=== PATIENT | female | born 1965 | race Caucasian/White ===

== ENCOUNTER 2017-01-19 20:02 | Emergency (ER) | payer BC ==
[2017-01-19] MEDS ORDERED: cefTRIAXone 1 GM Vial IM ONE (20:14)
[2017-01-19] MEDS ORDERED: HYDROmorphone 2 MG/ML SDV IM STA (20:23)
--- NOTE | 2017-01-19 21:05 | EDM.PDOC ---
ED HPI Trauma - General Stated Complaint: Toe injury Time Seen by Provider: 01/19/17 20:29 Source: Reports: Patient, Family History Limitations: Reports: No limitations - History of Present Illness INITIAL COMMENTS - FREE TEXT/NARRATIVE: 51 years old w f came to the ed due to pain and deformity of her right 5th toe after a dog leash got in between the toe 4/5 and the dog took off. Pt was able to walk on here right heal. No N/V/D or other acute medical issues at this time. Symptom Onset Date: 01/19/17 Symptom Onset Time: 19:00 Occurred When: just prior to arrival Occurred Where: home Method of Injury: other ( dog leash was stuck inbetween toes 4/5 r side) Severity: moderate Pain/Injury Location: Reports: lower extremity, right Consciousness: Reports: no loss of consciousness Associated Symptoms: Reports: denies other symptoms Allergies/ADRs: Allergies venom-honey bee [bee venom (honey bee)] Allergy (Mild, Verified 01/19/17 20:36) Swelling cajun spice Allergy (Mild, Uncoded 01/19/17 20:36) Swelling Home Medications: Ambulatory Orders Levothyroxine Sodium [Synthroid] 75 mcg PO ACBRK 08/18/13 [Confirmed 01/19/17] Losartan/Hydrochlorothiazide [Losartan-HCTZ 100-12.5 MG] 1 each PO DAILY [Confirmed 01/19/17] Pantoprazole Sodium 40 mg PO DAILY 06/01/14 [Confirmed 01/19/17] Acetaminophen/HYDROcodone [Muse 325-5 MG] 1 - 2 tab PO Q4H PRN #20 tab [Confirmed 01/19/17] Clindamycin HCl [Cleocin] 300 mg PO Q8H #30 cap 05/27/16 [Confirmed 01/19/17] Cephalexin [Keflex] 500 mg PO Q6HR #40 cap 01/19/17 Past Medical History - Past Health History Medical/Surgical History: Denies Medical/Surgical History Cardiovascular History: Reports: High cholesterol, Hypertension Gastrointestinal History: Reports: GERD Endocrine/Metabolic History: Reports: Hypothyroidism - Infectious Disease History Infectious Disease History: Reports: Chicken pox, Mumps, Shingles Social & Family History - Tobacco Use Smoking Status *Q: Former Smoker Years of Tobacco use: 34 Packs/Tins Daily: 1 Used Tobacco, but Quit: Yes Month Tobacco Last Used: 12/2013 Second Hand Smoke Exposure: No - Caffeine Use Caffeine Use: Reports: None - Alcohol Use Days Per Week of Alcohol Use: 7 Number of Drinks Per Day: 1 Total Drinks Per Week: 7 - Recreational Drug Use Recreational Drug Use: No Review of Systems - Review of Systems Review Of Systems: See Below Constitutional: Reports: no symptoms Eyes: Reports: no symptoms Ears: Reports: no symptoms Nose: Reports: no symptoms Mouth/Throat: Reports: no symptoms Respiratory: Reports: No Symptoms Cardiovascular: Reports: no symptoms GI/Abdominal: Reports: No symptoms Genitourinary: Reports: no symptoms Musculoskeletal: Reports: no symptoms Skin: Reports: wound (between left 4/5 right toe.) Neurological: Reports: No Symptoms Psychiatric: Reports: no symptoms Trauma Exam - Physical Exam Exam: See Below Exam Limited By: No limitations General Appearance: Reports: alert, WD/WN, mild distress Head: Reports: atraumatic, normocephalic Eyes: bilateral eye: normal inspection Ears: Reports: normal external exam, normal canal, hearing grossly normal, normal TMs Nose: Reports: normal inspection, normal mucousa, no blood Throat/Mouth: Reports: Normal inspection, Normal lips, Normal teeth, Normal gums , Normal oropharynx, Normal voice Neck: Reports: non-tender, full range of motion, normal alignment, normal inspection Respiratory Exam: Reports: no respiratory distress, lungs clear, normal breath sounds, no accessory muscle use, chest non-tender Cardiovascular: Reports: normal peripheral pulses, regular rate, rhythm, no edema, no gallop, no JVD, no murmur GI/Abdominal: Reports: normal bowel sounds, soft, non tender, no organomegaly (Female) Exam: Deferred Rectal (Female) Exam: Deferred Back: Reports: full range of motion, normal inspection, non-tender Extremities: Reports: pelvis stable, pain with movement (right 5th toe) Neurologic: Reports: business and financial counsel II-XII nml as tested, no motor/sensory deficits, alert , normal mood/affect, oriented x 3 Skin: Reports: Normal color, Other (minor LAC between 4th and 5th toe r foot) - Bob Coma Score Best Eye Response (Mammoth): (4) open spontaneously Best Verbal Response (Bob): (5) oriented Best Motor Response (Bob): (6) obeys commands [place]ammoth Total: 15 Course - Vital Signs Text/Narrative:: 51 years old w f came to the ed due to pain and deformity of her right 5th toe after a dog leash got in between the toe 4/5 and the dog took off. Pt was able to walk on here right heal. No N/V/D or other acute medical issues at this time. TD UTD PE: Deformity r 5th toe. minor LAC interdigital 4/5 toe, no active bleed Imaging: R toes: angulated fracture 5th prox Phalanx r 5th toe. Impression: open Fx 5th prox phalanx of right foot Tx: Rocephin, Dilaudid, wound care, beena tape applied, Unaboot r foot reexam: Improved, pt has boot at her home from a prev foot injury Plan: D/C home with instructions. addendum: consultation: Dr. Pike. J Ortho: I splanning to apply pins in her r 5th phalanx on Monday. Pt was given the phone number of Dr. Pike to call him: , Pt was called on 01/20/2017 10.01 am Last Recorded V/S: Last Vital Signs Temp 36.5 C 01/19/17 20:29 Pulse 71 01/19/17 21:27 Resp 14 01/19/17 20:29 BP 112/72 01/19/17 21:27 Pulse Ox 99 01/19/17 20:29 - Orders/Labs/Meds Orders: Active Orders 24 hr Category Date Time Status Toes Fifth Digit Rt T9 [CR] Stat Exams 01/19/17 20:11 Taken Meds: Medications Discontinued Medications Generic Name Dose Route Start Last Admin Trade Name Freq PRN Reason Stop Dose Admin Ceftriaxone Sodium 1 gm 01/19/17 20:14 01/19/17 20:24 Rocephin IM 01/19/17 20:15 1 gm ONETIME ONE Administration Hydromorphone HCl 1 mg 01/19/17 20:23 01/19/17 20:26 Dilaudid IM 01/19/17 20:24 1 mg ONETIME STA Administration Ondansetron HCl 8 mg 01/19/17 21:21 01/19/17 21:24 Zofran Odt PO 01/19/17 21:22 8 mg ONETIME ONE Administration Departure - Departure Time of Disposition: 21:19 Disposition: Home, Self-Care 01 Condition: good Clinical Impression: Laceration Toe fracture, right Qualifiers: Encounter type: initial encounter Toe: lesser toe Fracture type: open Phalanx: distal Fracture alignment: displaced Qualified Code(s): S92.531B - Displaced fracture of distal phalanx of right lesser toe(s), initial encounter for open fracture Prescriptions: Cephalexin [Keflex] 500 mg PO Q6HR #40 cap Referrals: Anna Mack NP [Primary Care Provider] - Patrick Pike MD [Physician] - Forms: ED Department Discharge Additional Instructions: Please elevate r foot, please take motrin for pain, please f/u with ortho as soon as possible, please take the Abx as recommended, please come back to the ed if symptoms get worse acutely. - My Orders Last 24 Hours: My Active Orders 01/19/17 20:11 Toes Fifth Digit Rt T9 [CR] Stat - Assessment/Plan Last 24 Hours: My Active Orders 01/19/17 20:11 Toes Fifth Digit Rt T9 [CR] Stat
[2017-01-19] MEDS ORDERED: Ondansetron 8 MG Tab.DIS PO ONE (21:21)
[2017-01-19 21:30] VITALS: BP 112/72
--- NOTE | 2017-01-20 13:53 | CR ---
INDICATION: Trauma to 5th toe. RIGHT TOES: Three views of the right toes revealed a comminuted fracture obliquely through the distal shaft and metaphysis of the proximal phalanx of the 5th toe with fairly marked medial plantar angulation at the fracture site with dorsal offset of the distal fracture fragment and lateral offset of the distal fracture fragment. No other bone or joint abnormality was identified. IMPRESSION: Fracture of the 5th toe with significant deformity. DOMINICK
== END 2017-01-19 21:27 | disposition home or self-care (01) ==
LOC: FB.ED 20:02
DX: S92.531B Displaced fracture of distal phalanx of right lesser toe(s), initial encounter for open fracture (principal); S91.114A Laceration without foreign body of right lesser toe(s) without damage to nail, initial encounter; I10 Essential (primary) hypertension; K21.9 Gastro-esophageal reflux disease without esophagitis; E03.9 Hypothyroidism, unspecified; Z79.899 Other long term (current) drug therapy; Z87.891 Personal history of nicotine dependence; Z91.030 Bee allergy status; Z91.018 Allergy to other foods; E78.00 Pure hypercholesterolemia, unspecified; W22.8XXA Striking against or struck by other objects, initial encounter; Y92.009 Unspecified place in unspecified non-institutional (private) residence as the place of occurrence of the external cause
CPT/HCPCS: 73660; 96372; 99283; A9270; J0696; J1170

== ENCOUNTER 2017-01-23 13:00 | Day surgery (SDC) | payer BC ==
[~2017-01-23 13:00] MED LIST: Lactated Ringers 1,000 ML IV SCH; Sodium Chloride 0.9% 10 ML Syringe FLUSH PRN; ceFAZolin 2 GM in Premix Bag 1 BAG IV ONE
[2017-01-23] MEDS ORDERED: Lidocaine 2% 100 MG/5 ML Syringe IVPUSH ONE (13:30)
[2017-01-23] MEDS ORDERED: Midazolam 1 MG/ML 2 ML SDV IV ONE (13:30)
[2017-01-23] MEDS ORDERED: Ketorolac 30 MG/ML SDV IVPUSH ONE (13:30)
[2017-01-23] MEDS ORDERED: Propofol 200 MG/20 ML SDV IV ONE (13:30)
[2017-01-23] MEDS ORDERED: fentaNYL 100 MCG/2 ML SDV IV ONE (13:30)
[2017-01-23] MEDS ORDERED: Ondansetron 4 MG/2 ML SDV IVPUSH ONE (13:30)
[2017-01-23] MEDS ORDERED: Ketamine 500 mg/10 ML MDV IV ONE (13:30)
[2017-01-23] MEDS ORDERED: Bupivacaine 0.5% 30 ML SDV ONE (13:56)
[2017-01-23] MEDS ORDERED: Acetaminophen/HYDROcodone 325-5 MG Tab PO PRN (14:42)
[2017-01-23] MEDS ORDERED: Lactated Ringers 1,000 ML IV SCH (14:45)
[2017-01-23] MEDS ORDERED: Vancomycin 1 GM SDV IV SCH (15:00)
[2017-01-23] MEDS ORDERED: Vancomycin 750 MG, Vancomycin 500 MG in Sodium Chloride 0.9% 250 ML IV ONE (16:00)
[2017-01-23] MEDS ORDERED: diphenhydrAMINE 50 MG Cap PO ONE (17:15)
[2017-01-23 18:19] VITALS: BP 124/45
--- NOTE | 2017-01-23 21:06 | OR ---
DATE OF OPERATION: 01/23/2017 SURGEON: Patrick Pike MD PREOPERATIVE DIAGNOSIS: Compound fracture, right 5th toe. OPERATIVE NOTE: The patient was taken to the operative suite and given a light MAC anesthesia with a 5th metatarsal phalangeal block. The block was performed after sterile ChloraPrep had been performed. 0.5% plain Marcaine was utilized without epi. This was done because the patient had significant pain with any movement of the toe. Once the sterile prep had been performed with ChloraPrep which was use from mid tibia down to the tip of the toes, sterile draping procedure was carried out. The patient then had the area examined. We found a curvilinear incision volarly that started in the top of the web space and then curved around on between the toes and then slightly proximal. It was a little over an inch. There was no active bleeding. I irrigated this with Betadine several times. I tried to close reduction with a 0.062 K-wire but visualization was not good and on the one AP, since the fracture site was very small, the bone alignment was not acceptable. Therefore, we opened the fracture dorsally. I made a small skin incision about an inch in length and dissected very carefully. The fracture site was brought into view and then with using a 0.062 K-wire, we then placed this across the fracture site and stabilized it. The pin was cut and then a small Jurgans ball was applied. The incision was then closed with 3-0 interrupted nylon. I closed the web space incision as well, although I did leave an area about a quarter of an inch open dorsally, so if there is any fluid or purulent material that would come out of the area and not be confined. She did receive 2 g of Ancef preoperatively but this incision that was felt to be small by the ER physician was actually a little bit larger than what I was comfortable with so with the current treatment; therefore, she will receive a gram of vancomycin postop and then come in every 12 hours for repeat vancomycin peak and trough and appropriate dosing of vancomycin will be followed by the pharmacy department. Postoperatively, also discussed with the patient the importance of watching for any increasing pain, redness, temperature, or any other concerns that she may have. Dressings will also be changed daily by the ER physician. /[id number] JJ/MODL
--- NOTE | 2017-01-24 14:48 | CR ---
INDICATION: Right 5th toe fracture. C-ARM FOR REDUCTION OF DISPLACED RIGHT 5TH TOE FRACTURE: Approximately 1 minute of radiation was utilized. Closed pinning reviewed and alignment has not been restored. [facility]
--- NOTE | 2017-01-24 14:49 | CR ---
INDICATION: Right 5th toe fracture. RIGHT 5TH TOE: AP and lateral of the right 5th toe, status post open reduction and internal fixation reveals that the patient has no evidence of significant malalignment. Significant improvement in alignment has been noted. Stabilization from a 0.62 K-wire noted. MTDD
== END 2017-01-23 17:35 | disposition home or self-care (01) ==
LOC: FB.SDS 13:00
PROVIDERS: ATTEND Orthopaedic Surgery
DX: S92.531B Displaced fracture of distal phalanx of right lesser toe(s), initial encounter for open fracture (principal); I10 Essential (primary) hypertension; E78.00 Pure hypercholesterolemia, unspecified; K21.9 Gastro-esophageal reflux disease without esophagitis; E03.9 Hypothyroidism, unspecified; Z79.899 Other long term (current) drug therapy; Z87.891 Personal history of nicotine dependence; Z91.030 Bee allergy status; Z91.018 Allergy to other foods
CPT/HCPCS: 28525; 36415; 73660; 76000; 82565; 82962; 84520; A4217; A9270; J0690; J1885; J2250; J2405; J2704; J3010; J3370; J7050; J7120

== ENCOUNTER 2017-09-08 07:57 | Day surgery (SDC) | payer BC ==
[2017-09-08] MEDS ORDERED: Lactated Ringers 1,000 ML IV SCH (08:00)
[2017-09-08] MEDS ORDERED: Sodium Chloride 0.9% 10 ML Syringe FLUSH PRN (08:00)
[2017-09-08] MEDS ORDERED: Propofol 200 MG/20 ML SDV IV ONE (09:30)
[2017-09-08] MEDS ORDERED: Midazolam 1 MG/ML 2 ML SDV IV ONE (09:30)
--- NOTE | 2017-09-08 09:57 | PCM.OPNOTE ---
- General Post-Op/Procedure Note Date of Surgery/Procedure: 09/08/17 Operative Procedure(s): c scope with bx hot loop and cold forcep Findings: cecal polyp descending colon polyp diverticulosis Pre Op Diagnosis: screening Post-Op Diagnosis: cecal polyp. descending colon polyp. diverticulosis Anesthesia Technique: MAC Primary Surgeon: Sammy Lamas Anesthesia Provider: Kaila Cruz Pathology: cecal polyp descending colon polyp Complications: None Condition: Good Free Text/Narrative:: see dictation
[2017-09-08 11:03] VITALS: BP 148/87
--- NOTE | 2017-09-08 15:47 | OR ---
DATE OF OPERATION: 09/08/2017 SURGEON: Sammy Lamas MD PROCEDURE PERFORMED: Colonoscopy with cold forceps and hot loop snare biopsy. PREOPERATIVE DIAGNOSIS: Need for screening C scope. POSTOPERATIVE DIAGNOSES: Polyp of the cecum and descending colon. INDICATIONS FOR PROCEDURE: This is a 52-year-old white female who is referred for screening colonoscopy. She was offered and accepted the same. DESCRIPTION OF OPERATION: After an excellent IV sedation was administered, digital rectal exam was performed. No marked abnormality was noted. The flexible colonoscope was inserted and advanced to the cecum without difficulty. The following findings were noted: Ascending colon in the area of the cecum near the appendiceal orifice, there was a small, plaque-like looking lesion. It appeared to be consistent with a possible polyp. This was biopsied with cold biopsy forceps and sent for permanent. The remainder of the ascending colon was unremarkable. Transverse colon was unremarkable. Descending colon near the splenic flexure, a pedunculated polyp, biopsied with the hot loop snare and retrieved. Scattered diverticula noted in the cecum and in the sigmoid as well. The rectum and anus were unremarkable. Colon was deflated. Scope was removed. The patient was taken to recovery in good condition. /[id number] /MODL
== END 2017-09-08 11:20 | disposition home or self-care (01) ==
LOC: FB.SDS 07:57
PROVIDERS: ATTEND Surgery
DX: Z12.11 Encounter for screening for malignant neoplasm of colon (principal); D12.4 Benign neoplasm of descending colon; K63.5 Polyp of colon; K57.30 Diverticulosis of large intestine without perforation or abscess without bleeding; I10 Essential (primary) hypertension; K21.9 Gastro-esophageal reflux disease without esophagitis; E03.9 Hypothyroidism, unspecified; E78.2 Mixed hyperlipidemia; E87.6 Hypokalemia; E11.9 Type 2 diabetes mellitus without complications; J45.909 Unspecified asthma, uncomplicated; F32.9 Major depressive disorder, single episode, unspecified; Z91.030 Bee allergy status; Z91.018 Allergy to other foods; Z79.84 Long term (current) use of oral hypoglycemic drugs; Z79.899 Other long term (current) drug therapy; Z98.51 Tubal ligation status; Z98.890 Other specified postprocedural states; Z87.891 Personal history of nicotine dependence
CPT/HCPCS: 45380; 45385; 82962; J2250; J2704; J7120; 88305

== ENCOUNTER 2017-09-09 20:42 | Emergency (ER) | payer BC ==
[2017-09-09 22:05] VITALS: BP 114/79
--- NOTE | 2017-09-09 23:01 | ER ---
DATE SEEN: 09/09/2017 CHIEF COMPLAINT: Nosebleed. HISTORY OF PRESENT ILLNESS: This is a 52-year-old female who complains of nosebleed that started suddenly about 30 minutes ago and then she got really anxious. It was flowing from both nostrils and up to the throat and it started without trauma. She has had similar episode 6 months ago that stopped spontaneously. REVIEW OF SYSTEMS: No chest pain, nausea, or vomiting. PAST MEDICAL HISTORY: Diverticulosis of the colon, type 2 diabetes, hyperlipidemia, hypothyroidism. ALLERGIES: Venom. PHYSICAL EXAMINATION: GENERAL: Anxious female who is not in any cardiopulmonary distress. VITAL SIGNS: Her blood pressure is 140 systolic. She is afebrile. HEAD: Normal size. NOSE: Examined after the nurse had done pressure that stopped the bleeding. There was no active bleeding noted in the nostrils. There was some blood debris in the oropharynx. MENTAL STATUS: Alert, answers questions well. SKIN: No pallor or jaundice. FINAL IMPRESSION: Nosebleed. PLAN: Supportive therapy, reassurance. The patient advised to pinch the bridge of the nose at the onset if it begins again. Otherwise, follow up p.r.n. TIME SEEN: 2100 hours. /[id number] ASHLI/DULCE
== END 2017-09-09 22:03 | disposition home or self-care (01) ==
LOC: FB.ED 20:42
DX: R04.0 Epistaxis (principal); E11.9 Type 2 diabetes mellitus without complications; Z91.048 Other nonmedicinal substance allergy status
CPT/HCPCS: 99283

== ENCOUNTER 2017-10-06 14:00 | Emergency (ER) | payer OTHER, BC ==
[2017-10-06] MEDS ORDERED: Ketorolac 60 MG/2 ML SDV IM ONE (14:23)
--- NOTE | 2017-10-06 15:46 | EDM.PDOC ---
ED HPI GENERAL MEDICAL PROBLEM - General Chief Complaint: Upper Extremity Injury/Pain Stated Complaint: LEFT RIB AND HAND Time Seen by Provider: 10/06/17 14:30 Source of Information: Reports: Patient History Limitations: Reports: No Limitations - History of Present Illness INITIAL COMMENTS - FREE TEXT/NARRATIVE: Patient is a 52 year old woman who was using heated bricks to heat the food container and food cart in the [facility] yesterday on 10-05-17 at 18:30 pm. She had one fishman holding 8 bricks fall on her left chest wall and ribs and on her left hand. Both areas hurt when moved or touched. It also hurts to cough or take a deep breath or bend down. She came in for x-rays, pain relief and to be evaluated. No fever or chills or other complaints. Onset: Sudden Onset Date: 10/05/17 Onset Time: 18:30 Duration: Constant Location: Reports: Chest Quality: Reports: Sharp, Stabbing, Other (Left hand feels bruised.) Improves with: Reports: None Worsens with: Reports: Movement Context: Reports: Trauma (Eight bricks fell on hand.) Associated Symptoms: Reports: No Other Symptoms - Related Data Allergies Allergy/AdvReac Type Severity Reaction Status Date / Time venom-honey bee Allergy Mild Swelling Verified 09/09/17 21:36 [bee venom (honey bee)] cajun spice Allergy Mild Swelling Uncoded 09/09/17 21:36 Home Meds: Home Meds Levothyroxine Sodium [Synthroid] 88 mcg PO ACBRK 08/18/13 [History] Losartan/Hydrochlorothiazide [Losartan-HCTZ 100-12.5 MG] 1 each PO DAILY [History] Pantoprazole Sodium 40 mg PO DAILY 06/01/14 [History] Acetaminophen/HYDROcodone [Early 325-5 MG] 1 - 2 tab PO Q4H PRN #20 tab [Rx] Clindamycin HCl [Cleocin] 300 mg PO Q8H #30 cap 05/27/16 [Rx] Cephalexin [Keflex] 500 mg PO Q6HR #40 cap 01/19/17 [Rx] metFORMIN [Glucophage] 500 mg PO BIDMEALS 01/23/17 [History] atorvaSTATin [Lipitor] 10 mg PO BEDTIME 09/07/17 [History] Past Medical History - Past Health History Medical/Surgical History: Denies Medical/Surgical History Cardiovascular History: Reports: High Cholesterol, Hypertension Respiratory History: Reports: Other (See Below) Other Respiratory History: pneumonia Gastrointestinal History: Reports: Gastritis, GERD, Other (See Below) Other Gastrointestinal History: DIAPHRAGMATIC HERNIA Genitourinary History: Reports: Other (See Below) Other Genitourinary History: PROTEINURIA ARTIST WOODBLOCK History: Reports: Neurological History: Reports: None Psychiatric History: Reports: Anxiety, Depression Endocrine/Metabolic History: Reports: Diabetes, Type II, Hypothyroidism Hematologic History: Reports: Other (See Below) Other Hematologic History: HYPOPOTASSEMIA Immunologic History: Reports: None Oncologic (Cancer) History: Reports: None Dermatologic History: Reports: None - Infectious Disease History Infectious Disease History: Reports: Chicken Pox, Mumps, Shingles - Past Surgical History Head Surgeries/Procedures: Reports: None HEENT Surgical History: Reports: Oral Surgery, Other (See Below) Other HEENT Surgeries/Procedures: WEARS UPPER DENTURES GI Surgical History: Reports: Colonoscopy, EGD Female Surgical History: Reports: Tubal Ligation Musculoskeletal Surgical History: Reports: Carpal Tunnel, Ganglion Cyst, ORIF, Other (See Below) Other Musculoskeletal Surgeries/Procedures:: TRIGGER FINGER RELEASE Social & Family History - Family History Family Medical History: Noncontributory - Tobacco Use Smoking Status *Q: Never Smoker Years of Tobacco use: 34 Packs/Tins Daily: 1 Used Tobacco, but Quit: Yes Month Tobacco Last Used: 2012 Second Hand Smoke Exposure: No - Caffeine Use Caffeine Use: Reports: None - Alcohol Use Days Per Week of Alcohol Use: 4 Number of Drinks Per Day: 2 Total Drinks Per Week: 8 - Recreational Drug Use Recreational Drug Use: No Drug Use in Last 12 Months: No Review of Systems - Review of Systems Review Of Systems: ROS reveals no pertinent complaints other than HPI. ED EXAM, GENERAL - Physical Exam Exam: See Below Exam Limited By: No Limitations General Appearance: Alert, WD/WN, No Apparent Distress Eye Exam: Bilateral Eye: EOMI, Normal Fundi, Normal Inspection Ear Exam: Bilateral Ear: Auricle Normal, Canal Normal, TM normal Nose: Normal Inspection, Normal Mucosa, No Blood Throat/Mouth: Normal Inspection, Normal Lips, Normal Teeth, Normal Gums, Normal Oropharynx, Normal Voice, No Airway Compromise Head: Atraumatic, Normocephalic Neck: Normal Inspection, Supple, Non-Tender, Full Range of Motion Respiratory/Chest: No Respiratory Distress, Lungs Clear, Normal Breath Sounds, No Accessory Muscle Use, Chest Non-Tender Cardiovascular: Normal Peripheral Pulses, Regular Rate, Rhythm, No Edema, No Gallop, No JVD, No Murmur, No Rub Back Exam: Normal Inspection, Full Range of Motion, NT Extremities: Arm Pain (Left hand is sore and hurts when touchedd an moves. He feels good othe), Limited Range of Motion Neurological: Alert, Oriented, CN II-XII Intact, Normal Cognition, Normal Gait, Normal Reflexes, No Motor/Sensory Deficits Psychiatric: Normal Affect, Normal Mood Skin Exam: Warm Lymphatic: No Adenopathy Course - Vital Signs Text/Narrative:: Labs and x-rays were all normal and showed no fracture. She will not be able to use her left hand until reevaluated on 10-11-18 by her physician. Ibuprofen 800 mg and Ibuprofen 500 mg ever 6 hours. [facility] Last Recorded V/S: Last Vital Signs Temp 36.5 C 10/06/17 14:00 Pulse 76 10/06/17 14:00 Resp 18 10/06/17 14:00 BP 144/90 H 10/06/17 14:00 Pulse Ox 98 10/06/17 14:00 - Orders/Labs/Meds Orders: Active Orders 24 hr Category Date Time Status CXR [Chest 2V] [CR] Stat Exams 10/06/17 14:22 Taken Hand Comp Min 3V Lt [CR] Stat Exams 10/06/17 14:39 Taken Ribs 3V wo Chest Lt [CR] Stat Exams 10/06/17 14:22 Taken Labs: Laboratory Tests 10/06/17 10/06/17 Range/Units 14:50 14:50 WBC 7.9 (4.5-12.0) X10-3/uL RBC 4.48 (3.23-5.20) x10(6)uL Hgb 13.4 (11.5-15.5) g/dL Hct 40.0 (30.0-51.3) % MCV 89.3 (80-96) fL MCH 29.9 (27.7-33.6) pg MCHC 33.5 (32.2-35.4) g/dL RDW 17.4 H (11.5-15.5) % Plt Count 265 (125-369) X10(3)uL MPV 9.9 (7.4-10.4) fL Neut % (Auto) 62.8 (46-82) % Lymph % (Auto) 25.4 (13-37) % [place] % (Auto) 4.9 (4-12) % Eos % (Auto) 5 (1.0-5.0) % Baso % (Auto) 2 (0-2) % Neut # (Auto) 4.9 (1.6-8.3) # Lymph # (Auto) 2.0 (0.6-5.0) # [place] # (Auto) 0.4 (0.0-1.3) # Eos # (Auto) 0.4 (0.0-0.8) # Baso # (Auto) 0.2 (0.0-0.2) # Sodium 141 (135-145) mmol/L Potassium 3.8 (3.5-5.3) mmol/L Chloride 103 (100-110) mmol/L Carbon Dioxide 27 (21-32) mmol/L BUN 14 (7-18) mg/dL Creatinine 0.9 (0.55-1.02) mg/dL Est Cr Clr Drug Dosing 67.29 mL/min Estimated GFR (MDRD) > 60 (>60) BUN/Creatinine Ratio 15.6 (9-20) Glucose 124 H (80-116) mg/dL Calcium 9.2 (8.6-10.2) mg/dL Total Bilirubin 1.4 H (0.1-1.3) mg/dL AST 52 H (5-25) IU/L ALT 66 H (12-36) U/L Alkaline Phosphatase 74 (56-112) IU/L Total Protein 8.0 (6.0-8.0) g/dL Albumin 4.0 (3.5-5.2) g/dL Globulin 4.0 g/dL Albumin/Globulin Ratio 1.0 Meds: Medications Discontinued Medications Generic Name Dose Route Start Last Admin Trade Name Freq PRN Reason Stop Dose Admin Ketorolac Tromethamine 60 mg 10/06/17 14:23 10/06/17 14:52 Toradol IM 10/06/17 14:24 60 mg ONETIME ONE Administration Departure - Departure Time of Disposition: 15:51 Disposition: Home, Self-Care 01 Condition: Good Clinical Impression: Contusion of rib on left side - Discharge Information Referrals: Anna Mack, BIOMEDICAL SPECIALIST [Primary Care Provider] - - My Orders Last 24 Hours: My Active Orders 10/06/17 14:22 CXR [Chest 2V] [CR] Stat Ribs 3V wo Chest Lt [CR] Stat 10/06/17 14:39 Hand Comp Min 3V Lt [CR] Stat - Assessment/Plan Last 24 Hours: My Active Orders 10/06/17 14:22 CXR [Chest 2V] [CR] Stat Ribs 3V wo Chest Lt [CR] Stat 10/06/17 14:39 Hand Comp Min 3V Lt [CR] Stat
[2017-10-06 16:22] VITALS: BP 126/78
== END 2017-10-06 16:05 | disposition home or self-care (01) ==
LOC: FB.ED 14:00
DX: S20.211A Contusion of right front wall of thorax, initial encounter (principal); E11.9 Type 2 diabetes mellitus without complications; I10 Essential (primary) hypertension; E78.00 Pure hypercholesterolemia, unspecified; Z87.891 Personal history of nicotine dependence; Z79.899 Other long term (current) drug therapy; Z79.84 Long term (current) use of oral hypoglycemic drugs; Z91.030 Bee allergy status; Z91.018 Allergy to other foods; W20.8XXA Other cause of strike by thrown, projected or falling object, initial encounter
CPT/HCPCS: 36415; 71020; 71101; 73130; 80053; 85025; 96372; 99284; J1885

== ENCOUNTER 2017-10-07 11:19 | Emergency (ER) | payer OTHER, BC ==
[2017-10-07] MEDS ORDERED: traMADol 50 MG Tab PO ONE (11:23)
[2017-10-07] MEDS ORDERED: Acetaminophen/HYDROcodone 325-10 MG Tab PO ONE (12:33)
[2017-10-07] MEDS ORDERED: Iopamidol 755 Mg/ML 100 ML Bottle IV ONE (13:43)
[2017-10-07] MEDS ORDERED: Ondansetron 4 MG Tab.DIS PO ONE (14:30)
[2017-10-07] MEDS ORDERED: Acetaminophen/HYDROcodone 325-5 MG Tab PO ONE (14:58)
--- NOTE | 2017-10-07 16:17 | EDM.PDOC ---
ED HPI GENERAL MEDICAL PROBLEM - General Chief Complaint: Upper Extremity Injury/Pain Stated Complaint: LEFT SIDE PAIN WORSE THAN YESTERDAY Time Seen by Provider: 10/07/17 11:45 Source of Information: Reports: Patient History Limitations: Reports: No Limitations - History of Present Illness INITIAL COMMENTS - FREE TEXT/NARRATIVE: Patient was seen yesterday for a work comp injury where she dropped bricks on her left lower ribs and left hand. See that note. No fracture seen on plain rib films. Her left rib pain is worsening and her present pain control is not adequate. Onset: Sudden Onset Date: 10/05/17 Onset Time: 16:15 Left Chest Pain Score (Numeric/FACES): 8 - Related Data Allergies Allergy/AdvReac Type Severity Reaction Status Date / Time venom-honey bee Allergy Mild Swelling Verified 10/07/17 11:26 [bee venom (honey bee)] cajun spice Allergy Mild Swelling Uncoded 10/07/17 11:26 Home Meds: Home Meds Levothyroxine Sodium [Synthroid] 88 mcg PO ACBRK 08/18/13 [History] Losartan/Hydrochlorothiazide [Losartan-HCTZ 100-12.5 MG] 1 each PO DAILY [History] Pantoprazole Sodium 40 mg PO DAILY 06/01/14 [History] Clindamycin HCl [Cleocin] 300 mg PO Q8H #30 cap 05/27/16 [Rx] metFORMIN [Glucophage] 500 mg PO BIDMEALS 01/23/17 [History] atorvaSTATin [Lipitor] 10 mg PO BEDTIME 09/07/17 [History] Acetaminophen/HYDROcodone [[place] 325-5 MG] 1 tab PO Q4H PRN 7 Days #30 tab 10/07 [Rx] Hydrocodone/Acetaminophen [[place] 5-325] 1 tab PO Q4H PRN 7 Days #30 tablet 10/07 [Rx] Past Medical History - Past Health History Medical/Surgical History: Denies Medical/Surgical History Cardiovascular History: Reports: High Cholesterol, Hypertension Respiratory History: Reports: Other (See Below) Other Respiratory History: pneumonia Gastrointestinal History: Reports: Gastritis, GERD, Other (See Below) Other Gastrointestinal History: DIAPHRAGMATIC HERNIA Genitourinary History: Reports: Other (See Below) 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: Neurological History: Reports: None Psychiatric History: Reports: Anxiety, Depression Endocrine/Metabolic History: Reports: Diabetes, Type II, Hypothyroidism Hematologic History: Reports: Other (See Below) Other Hematologic History: HYPOPOTASSEMIA Immunologic History: Reports: None Oncologic (Cancer) History: Reports: None Dermatologic History: Reports: None - Infectious Disease History Infectious Disease History: Reports: Chicken Pox, Measles, Mumps, Shingles - Past Surgical History Head Surgeries/Procedures: Reports: None HEENT Surgical History: Reports: Oral Surgery, Other (See Below) Other HEENT Surgeries/Procedures: WEARS UPPER DENTURES GI Surgical History: Reports: Colonoscopy, EGD Female Surgical History: Reports: Tubal Ligation Musculoskeletal Surgical History: Reports: Carpal Tunnel, Ganglion Cyst, ORIF, Other (See Below) Other Musculoskeletal Surgeries/Procedures:: TRIGGER FINGER RELEASE Social & Family History - Family History Family Medical History: Noncontributory - Tobacco Use Smoking Status *Q: Never Smoker Years of Tobacco use: 34 Packs/Tins Daily: 1 Used Tobacco, but Quit: Yes Month Tobacco Last Used: 2012 Second Hand Smoke Exposure: No - Caffeine Use Caffeine Use: Reports: Coffee - Alcohol Use Days Per Week of Alcohol Use: 4 Number of Drinks Per Day: 2 Total Drinks Per Week: 8 - Recreational Drug Use Recreational Drug Use: No Drug Use in Last 12 Months: No Review of Systems - Review of Systems Review Of Systems: ROS reveals no pertinent complaints other than HPI. ED EXAM, GENERAL - Physical Exam Exam: See Below Exam Limited By: No Limitations General Appearance: Alert, WD/WN, No Apparent Distress Eye Exam: Bilateral Eye: EOMI, Normal Fundi, Normal Inspection, PERRL Ears: Normal External Exam, Normal Canal, Hearing Grossly Normal, Normal TMs Ear Exam: Bilateral Ear: Auricle Normal, Canal Normal, TM normal Nose: Normal Inspection, Normal Mucosa, No Blood Throat/Mouth: Normal Inspection, Normal Lips, Normal Teeth, Normal Gums, Normal Oropharynx, Normal Voice, No Airway Compromise Head: Atraumatic, Normocephalic Neck: Normal Inspection, Supple, Non-Tender, Full Range of Motion Respiratory/Chest: No Respiratory Distress, Lungs Clear, Normal Breath Sounds, No Accessory Muscle Use, Chest Non-Tender, Other (Pain over the left lower rib. CT scan shows nondisplaced 8th rib fracture. Splenomegaly but no hematoma.) Cardiovascular: Normal Peripheral Pulses, Regular Rate, Rhythm, No Edema, No Gallop, No JVD, No Murmur, No Rub GI/Abdominal: Normal Bowel Sounds, Soft, Non-Tender, No Organomegaly, No Distention, No Abnormal Bruit, No Mass Back Exam: Normal Inspection, Full Range of Motion, NT Extremities: Normal Inspection, Normal Range of Motion, Non-Tender, Normal Capillary Refill, No Pedal Edema Neurological: Alert, Oriented, CN II-XII Intact, Normal Cognition, Normal Gait, Normal Reflexes, No Motor/Sensory Deficits Psychiatric: Normal Affect, Normal Mood Skin Exam: Warm, Dry, Intact, Normal Color, No Rash Lymphatic: No Adenopathy Course - Vital Signs Text/Narrative:: Uneventful ED course. She did not tolerate po vicodin and zofran, so we gave her IV Zofran and IV Dilaudid, which helped with her pain. We will discharge her home on [place] 5-325 mg one po q 4 hours, #30, no refills and Zofran 4 mg po tid prn nausea, #30. Follow up in ED if worsening over weekend but see PCP next week. No lifting at work when she goes back in 2 days. Last Recorded V/S: Last Vital Signs Temp 36.4 C 10/07/17 11:34 Pulse 50 L 10/07/17 13:06 Resp 18 10/07/17 13:06 BP 142/99 H 10/07/17 13:06 Pulse Ox 98 10/07/17 13:06 - Orders/Labs/Meds Orders: Active Orders 24 hr Category Date Time Status Chest Abdomen Pelvis w Cont [CT] Stat Exams 10/07/17 13:23 Taken Sodium Chloride 0.9% [Saline Flush] Med 10/07/17 16:42 Active 10 ml FLUSH ASDIRECTED PRN Saline Lock Insert [OM.PC] Routine Oth 10/07/17 16:42 Ordered Medication Orders Sodium Chloride (Saline Flush) 10 ml FLUSH ASDIRECTED PRN PRN Reason: Keep Vein Open Meds: Medications Generic Name Dose Route Start Last Admin Trade Name Freq PRN Reason Stop Dose Admin Sodium Chloride 10 ml 10/07/17 16:42 Saline Flush FLUSH ASDIRECTED PRN Keep Vein Open Discontinued Medications Generic Name Dose Route Start Last Admin Trade Name Freq PRN Reason Stop Dose Admin Hydrocodone Bitart/Acetaminophen 1 tab 10/07/17 12:33 10/07/17 12:40 [place] 325-10 Mg PO 10/07/17 12:34 1 tab ONETIME ONE Administration Hydrocodone Bitart/Acetaminophen 1 tab 10/07/17 14:58 10/07/17 15:04 [place] 325-5 Mg PO 10/07/17 14:59 1 tab ONETIME ONE Administration Hydromorphone HCl 1 mg 10/07/17 16:18 10/07/17 16:33 Dilaudid IM 10/07/17 16:19 1 mg ONETIME ONE Administration Iopamidol 100 ml 10/07/17 13:43 10/07/17 14:01 Isovue-370 (76%) IV 10/07/17 13:44 100 ml . DIRECTED ONE Administration Ondansetron HCl 4 mg 10/07/17 14:30 10/07/17 14:43 Zofran Odt PO 10/07/17 14:31 4 mg ONETIME ONE Administration Ondansetron HCl 4 mg 10/07/17 16:18 10/07/17 16:29 Zofran IVPUSH 10/07/17 16:19 4 mg ONETIME ONE Administration Tramadol HCl 100 mg 10/07/17 11:23 10/07/17 11:29 Ultram PO 10/07/17 11:24 100 mg ONETIME ONE Administration Departure - Departure Time of Disposition: 16:41 Disposition: Home, Self-Care 01 Condition: Good Clinical Impression: Closed rib fracture Qualifiers: Encounter type: sequela Rib fracture type: single rib Laterality: left Qualified Code(s): S22.32XS - Fracture of one rib, left side, sequela - Discharge Information Prescriptions: Acetaminophen/HYDROcodone [[place] 325-5 MG] 1 tab PO Q4H PRN 7 Days #30 tab PRN Reason: Pain Hydrocodone/Acetaminophen [[place] 5-325] 1 tab PO Q4H PRN 7 Days #30 tablet PRN Reason: Pain/Fever Referrals: Anna Mack NP [Primary Care Provider] - Forms: ED Department Discharge - My Orders Last 24 Hours: My Active Orders 10/07/17 13:23 Chest Abdomen Pelvis w Cont [CT] Stat 10/07/17 16:42 Sodium Chloride 0.9% [Saline Flush] 10 ml FLUSH ASDIRECTED PRN Saline Lock Insert [OM.PC] Routine - Assessment/Plan Last 24 Hours: My Active Orders 10/07/17 13:23 Chest Abdomen Pelvis w Cont [CT] Stat 10/07/17 16:42 Sodium Chloride 0.9% [Saline Flush] 10 ml FLUSH ASDIRECTED PRN Saline Lock Insert [OM.PC] Routine
[2017-10-07] MEDS ORDERED: HYDROmorphone 2 MG/ML SDV IM ONE (16:18)
[2017-10-07] MEDS ORDERED: Ondansetron 4 MG/2 ML SDV IVPUSH ONE (16:18)
[2017-10-07] MEDS: Sodium Chloride 0.9% 10 ML Syringe FLUSH PRN ×2 (16:43→16:44)
[2017-10-07 17:16] VITALS: BP 130/97
== END 2017-10-07 17:14 | disposition home or self-care (01) ==
LOC: FB.ED 11:19
DX: S22.32XS Fracture of one rib, left side, sequela (principal); Z91.030 Bee allergy status; I10 Essential (primary) hypertension; E11.9 Type 2 diabetes mellitus without complications; E78.00 Pure hypercholesterolemia, unspecified; E03.9 Hypothyroidism, unspecified; W20.8XXS Other cause of strike by thrown, projected or falling object, sequela; Y99.0 Civilian activity done for income or pay
CPT/HCPCS: 71260; 74177; 96372; 96374; 99284; A9270; J1170; J2405; J7050; Q9967

== ENCOUNTER 2019-02-10 19:17 | Emergency (ER) | payer BC ==
[2019-02-10] MEDS ORDERED: Aspirin 81 MG Tab.Chew PO ONE (19:22)
[2019-02-10] MEDS ORDERED: Pantoprazole 40 MG Vial IVPUSH ONE (19:27)
--- NOTE | 2019-02-10 19:29 | EDM.PDOC ---
ED HPI GENERAL MEDICAL PROBLEM - General Chief Complaint: Cardiovascular Problem Stated Complaint: chest pain Time Seen by Provider: 02/10/19 19:24 Source of Information: Reports: Patient History Limitations: Reports: No Limitations - History of Present Illness INITIAL COMMENTS - FREE TEXT/NARRATIVE: Presents with non-radiating substernal chest tightness, onset 2 hours ago, exacerbated by deep breathing. Denies SOB, nausea. Similar symptoms in past due to anxiety. No prior h/o CAD. Father has had 14 AMI's, first PA at 44 yo. Onset: Today Onset Date: 02/10/19 Onset Time: 17:00 Duration: Hour(s): (2) Location: Reports: Chest Quality: Reports: Other (tightness) Severity: Moderate Associated Symptoms: Reports: Chest Pain. Denies: Shortness of Breath - Related Data Allergies Allergy/AdvReac Type Severity Reaction Status Date / Time venom-honey bee Allergy Mild Swelling Verified 02/10/19 20:54 [bee venom (honey bee)] cajun spice Allergy Mild Swelling Uncoded 02/10/19 20:54 Home Meds: Home Meds Levothyroxine Sodium [Synthroid] 88 mcg PO ACBRK 08/18/13 [History] Losartan/Hydrochlorothiazide [Losartan-HCTZ 100-12.5 MG] 1 each PO DAILY [History] Pantoprazole Sodium 40 mg PO DAILY 06/01/14 [History] metFORMIN [Glucophage] 500 mg PO BIDMEALS 01/23/17 [History] atorvaSTATin [Lipitor] 10 mg PO BEDTIME 09/07/17 [History] Past Medical History Cardiovascular History: Reports: High Cholesterol, Hypertension. 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: Neurological History: Reports: None Psychiatric History: Reports: Anxiety, Depression Endocrine/Metabolic History: Reports: Diabetes, Type II, Hypothyroidism Hematologic History: Reports: Other (See Below) Other Hematologic History: HYPOPOTASSEMIA Immunologic History: Reports: None Oncologic (Cancer) History: Reports: None Dermatologic History: Reports: None - Infectious Disease History Infectious Disease History: Reports: Chicken Pox, Measles, Mumps, Shingles - Past Surgical History Head Surgeries/Procedures: Reports: None HEENT Surgical History: Reports: Oral Surgery, Other (See Below) Other HEENT Surgeries/Procedures: WEARS UPPER DENTURES GI Surgical History: Reports: Colonoscopy, EGD Female Surgical History: Reports: Tubal Ligation Musculoskeletal Surgical History: Reports: Carpal Tunnel, Ganglion Cyst, ORIF, Other (See Below) Other Musculoskeletal Surgeries/Procedures:: TRIGGER FINGER RELEASE Social & Family History - Family History Family Medical History: Noncontributory - Tobacco Use Smoking Status *Q: Former Smoker Tobacco Use Within Last Twelve Months: No - Caffeine Use Caffeine Use: Reports: Coffee ED ROS GENERAL - Review of Systems Review Of Systems: ROS reveals no pertinent complaints other than HPI. ED EXAM, GENERAL - Physical Exam Exam: See Below Free Text/Narrative:: Heart Score = 4 Exam Limited By: No Limitations General Appearance: Alert, WD/WN, No Apparent Distress Ears: Normal External Exam Nose: Normal Inspection Throat/Mouth: No Airway Compromise Head: Atraumatic, Normocephalic Neck: Full Range of Motion Respiratory/Chest: No Respiratory Distress, Lungs Clear, Normal Breath Sounds, Other (+chest wall tenderness) Cardiovascular: Regular Rate, Rhythm, No Murmur GI/Abdominal: No Distention Back Exam: Full Range of Motion Extremities: Normal Inspection, Normal Range of Motion, Non-Tender, No Pedal Edema Neurological: Alert, Normal Cognition Psychiatric: Normal Affect, Normal Mood Skin Exam: Warm, Dry, Intact EKG INTERPRETATION EKG Date: 02/10/19 Time: 19:25 Rhythm: NSR Rate (Beats/Min): 81 [place]: Normal P-Wave: Present QRS: Other (q waves inferior leads) ST-T: Normal QT: Normal Comparison: No Change EKG Interpretation Comments: EKG #2 did not show changes Course - Vital Signs Last Recorded V/S: Last Vital Signs Temp 36.6 C 02/10/19 19:20 Pulse Resp 20 02/10/19 20:45 BP 139/83 02/10/19 20:45 Pulse Ox 94 L 02/10/19 20:45 - Orders/Labs/Meds Orders: Active Orders 24 hr Category Date Time Status EKG Documentation Completion [RC] ASDIRECTED Care 02/10/19 19:18 Active EKG Documentation Completion [RC] ASDIRECTED Care 02/10/19 20:29 Active CXR [Chest 1V Frontal] [CR] Stat Exams 02/10/19 19:19 Taken Nitroglycerin [Nitrostat] Med 02/10/19 19:22 Active 0.4 mg SL Q5M PRN Sodium Chloride 0.9% [Saline Flush] Med 02/10/19 19:22 Active 10 ml FLUSH ASDIRECTED PRN Saline Lock Insert [OM.PC] Routine Oth 02/10/19 19:22 Ordered EKG 12 Lead [EK] Stat Ther 02/10/19 19:18 Ordered EKG 12 Lead [EK] Urgent Ther 02/10/19 22:30 Ordered Medication Orders Nitroglycerin (Nitrostat) 0.4 mg SL Q5M PRN PRN Reason: Chest Pain Last Admin: 02/10/19 19:44 Dose: 0.4 mg Admin: 02/10/19 19:34 Dose: 0.4 mg Sodium Chloride (Saline Flush) 10 ml FLUSH ASDIRECTED PRN PRN Reason: Keep Vein Open Last Admin: 02/10/19 20:00 Dose: 10 ml Admin: 02/10/19 19:50 Dose: 10 ml Labs: Laboratory Tests 02/10/19 02/10/19 02/10/19 Range/Units 19:33 19:33 19:33 WBC 9.5 (4.5-12.0) X10-3/uL RBC 4.44 (3.23-5.20) x10(6)uL Hgb 12.6 (11.5-15.5) g/dL Hct 37.6 (30.0-51.3) % MCV 84.6 (80-96) fL MCH 28.4 (27.7-33.6) pg MCHC 33.6 (32.2-35.4) g/dL RDW 17.6 H (11.5-15.5) % Plt Count 294 (125-369) X10(3)uL MPV 9.6 (7.4-10.4) fL Neut % (Auto) 59.9 (46-82) % Lymph % (Auto) 27.4 (13-37) % [place] % (Auto) 5.9 (4-12) % Eos % (Auto) 4 (1.0-5.0) % Baso % (Auto) 2 (0-2) % Neut # (Auto) 5.7 (1.6-8.3) # Lymph # (Auto) 2.6 (0.6-5.0) # [place] # (Auto) 0.6 (0.0-1.3) # Eos # (Auto) 0.4 (0.0-0.8) # Baso # (Auto) 0.2 (0.0-0.2) # PT 11.0 (8.7-11.1) INR 1.13 (0.89-1.13) APTT 27.6 (24.4-33.2) SECONDS D-Dimer, Quantitative 0.19 (0.0-0.59) mg/LFEU Sodium 142 (135-145) mmol/L Potassium 3.4 L (3.5-5.3) mmol/L Chloride 103 (100-110) mmol/L Carbon Dioxide 28 (21-32) mmol/L BUN 10 (7-18) mg/dL Creatinine 1.0 (0.55-1.02) mg/dL Est Cr Clr Drug Dosing TNP Estimated GFR (MDRD) 58 L (>60) BUN/Creatinine Ratio 10.0 (9-20) Glucose 115 (80-116) mg/dL Calcium 8.8 (8.6-10.2) mg/dL Total Bilirubin 0.9 (0.1-1.3) mg/dL AST 16 (5-25) IU/L ALT 32 D (12-36) U/L Alkaline Phosphatase 92 (56-112) IU/L Troponin I (<0.017-0.056) ng/mL Total Protein 7.5 (6.0-8.0) g/dL Albumin 3.7 (3.5-5.2) g/dL Globulin 3.8 g/dL Albumin/Globulin Ratio 1.0 02/10/19 02/10/19 Range/Units 19:33 22:36 WBC (4.5-12.0) X10-3/uL RBC (3.23-5.20) x10(6)uL Hgb (11.5-15.5) g/dL Hct (30.0-51.3) % MCV (80-96) fL MCH (27.7-33.6) pg MCHC (32.2-35.4) g/dL RDW (11.5-15.5) % Plt Count (125-369) X10(3)uL MPV (7.4-10.4) fL Neut % (Auto) (46-82) % Lymph % (Auto) (13-37) % [place] % (Auto) (4-12) % Eos % (Auto) (1.0-5.0) % Baso % (Auto) (0-2) % Neut # (Auto) (1.6-8.3) # Lymph # (Auto) (0.6-5.0) # [place] # (Auto) (0.0-1.3) # Eos # (Auto) (0.0-0.8) # Baso # (Auto) (0.0-0.2) # PT (8.7-11.1) INR (0.89-1.13) APTT (24.4-33.2) SECONDS D-Dimer, Quantitative (0.0-0.59) mg/LFEU Sodium (135-145) mmol/L Potassium (3.5-5.3) mmol/L Chloride (100-110) mmol/L Carbon Dioxide (21-32) mmol/L BUN (7-18) mg/dL Creatinine (0.55-1.02) mg/dL Est Cr Clr Drug Dosing Estimated GFR (MDRD) (>60) BUN/Creatinine Ratio (9-20) Glucose (80-116) mg/dL Calcium (8.6-10.2) mg/dL Total Bilirubin (0.1-1.3) mg/dL AST (5-25) IU/L ALT (12-36) U/L Alkaline Phosphatase (56-112) IU/L Troponin I < 0.017 L < 0.017 L (<0.017-0.056) ng/mL Total Protein (6.0-8.0) g/dL Albumin (3.5-5.2) g/dL Globulin g/dL Albumin/Globulin Ratio Meds: Medications Generic Name Dose Route Start Last Admin Trade Name Freq PRN Reason Stop Dose Admin Nitroglycerin 0.4 mg 02/10/19 19:22 02/10/19 19:44 Nitrostat SL 0.4 mg Q5M PRN Administration Chest Pain Sodium Chloride 10 ml 02/10/19 19:22 02/10/19 20:00 Saline Flush FLUSH 10 ml ASDIRECTED PRN Administration Keep Vein Open Discontinued Medications Generic Name Dose Route Start Last Admin Trade Name Januszq PRN Reason Stop Dose Admin Aspirin 324 mg 02/10/19 19:22 02/10/19 19:25 Aspirin PO 02/10/19 19:23 324 mg ONETIME ONE Administration Ondansetron HCl 4 mg 02/10/19 19:52 02/10/19 19:55 Zofran IVPUSH 02/10/19 19:53 4 mg ONETIME ONE Administration Pantoprazole Sodium 40 mg 02/10/19 19:27 02/10/19 19:46 Protonix Iv IVPUSH 02/10/19 19:28 40 mg ONETIME ONE Administration Sodium Biphosphate/Sodium Phosphate 133 ml 02/10/19 19:55 Fleet Enema RECTAL 02/10/19 19:56 ONETIME ONE - Radiology Interpretation Free Text/Narrative:: CXR: No acute disease. (ED provider interpretation) - Re-Assessments/Exams Free Text/Narrative Re-Assessment/Exam: 02/10/19 19:51 Chest pain has improved from 07/02 to 10 after NTG SL x 2. 02/10/19 23:02 Patient is pain free after NTG SL x 2. 02/10/19 23:34 Patient has significant risk factors for CAD, inpatient cardiac stress test not available at [facility]. Case discussed with Dr. So (Hospitalist), accepts transfer to [facility]. Departure - Departure Time of Disposition: 23:36 Disposition: DC/Tfer to Acute Hospital 02 Reason for Transfer *Q: Other Condition: Fair Clinical Impression: Chest pain Qualifiers: Chest pain type: unspecified Qualified Code(s): R07.9 - Chest pain, unspecified Referrals: PCP,None [Primary Care Provider] - Forms: ED Department Discharge - My Orders Last 24 Hours: My Active Orders 02/10/19 19:18 EKG Documentation Completion [RC] ASDIRECTED EKG 12 Lead [EK] Stat 02/10/19 19:19 CXR [Chest 1V Frontal] [CR] Stat 02/10/19 19:22 Nitroglycerin [Nitrostat] 0.4 mg SL Q5M PRN Sodium Chloride 0.9% [Saline Flush] 10 ml FLUSH ASDIRECTED PRN Saline Lock Insert [OM.PC] Routine 02/10/19 20:29 EKG Documentation Completion [RC] ASDIRECTED 02/10/19 22:30 EKG 12 Lead [EK] Urgent - Assessment/Plan Last 24 Hours: My Active Orders 02/10/19 19:18 EKG Documentation Completion [RC] ASDIRECTED EKG 12 Lead [EK] Stat 02/10/19 19:19 CXR [Chest 1V Frontal] [CR] Stat 02/10/19 19:22 Nitroglycerin [Nitrostat] 0.4 mg SL Q5M PRN Sodium Chloride 0.9% [Saline Flush] 10 ml FLUSH ASDIRECTED PRN Saline Lock Insert [OM.PC] Routine 02/10/19 20:29 EKG Documentation Completion [RC] ASDIRECTED 02/10/19 22:30 EKG 12 Lead [EK] Urgent
[2019-02-10] MEDS: Nitroglycerin 0.4 MG Tab.SL SL PRN ×2 (19:34→19:44)
[2019-02-10] MEDS: Sodium Chloride 0.9% 10 ML Syringe FLUSH PRN ×2 (19:50→20:00)
[2019-02-10] MEDS ORDERED: Ondansetron 4 MG/2 ML SDV IVPUSH ONE (19:52)
[2019-02-10] MEDS ORDERED: Sodium Phosphate,Monobasic/Sodium Phosphate,Dibasic Enema 133 ML Bottle RECTAL ONE (19:55)
[2019-02-14 16:03] VITALS: BP 109/76
== END 2019-02-11 00:15 ==
LOC: FB.ED 19:17
DX: R07.9 Chest pain, unspecified (principal); Z82.49 Family history of ischemic heart disease and other diseases of the circulatory system; E78.00 Pure hypercholesterolemia, unspecified; I10 Essential (primary) hypertension; K29.70 Gastritis, unspecified, without bleeding; E11.8 Type 2 diabetes mellitus with unspecified complications; E03.9 Hypothyroidism, unspecified; Z87.891 Personal history of nicotine dependence; Z79.84 Long term (current) use of oral hypoglycemic drugs; Z79.899 Other long term (current) drug therapy; Z91.030 Bee allergy status; Z91.018 Allergy to other foods
CPT/HCPCS: 36415; 71045; 80053; 84484; 85025; 85379; 85610; 85730; 93005; 96374; 96375; 99285-25; A9270-GY; C9113; J2405

== ENCOUNTER 2019-06-29 01:00 | Emergency (ER) | payer BC ==
--- NOTE | 2019-06-29 01:15 | EDM.PDOC ---
ED HPI GENERAL MEDICAL PROBLEM - General Chief Complaint: Respiratory Problem Stated Complaint: SOB Time Seen by Provider: 06/29/19 01:11 Source of Information: Reports: Patient History Limitations: Reports: No Limitations - History of Present Illness INITIAL COMMENTS - FREE TEXT/NARRATIVE: 53-year-old female who has had off and nasal congestion with sore throat and hoarse voice for the past 8 days. The cough seems to be worsening. She states it "feels like when I had pneumonia before". She was seen at the [facility] in [place] on Monday of last week and was told that she had a viral illness. She was seen again at the [facility] in [place] on Monday of this week and was placed on prednisone and Robitussin-AC. She was also given a prescription of doxycycline but was told not to pick it up until today if her symptoms did not improve. She reports that she has persisted with a cough and the cough is now productive of green phlegm and it is a hacking cough that is very persistent and she has not been getting sleep. She has had cough to the point of incontinence. She has been feeling short of breath all along but felt more short of breath tonight and was not able to sleep. She rates the pain in her throat as a 9/10. She is having left-sided chest pain with cough and she rates that as an 8/10. These are sharp pains worse with swallowing and with cough. She has had a subjective fever off and on. She has had no vomiting or diarrhea. She has been drinking liquids well. There are no other associated signs or symptoms. There are no other modifying factors. 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(s) (Prednisone and Robitussin-AC.) - Related Data Allergies Allergy/AdvReac Type Severity Reaction Status Date / Time venom-honey bee Allergy Mild Swelling Verified 06/29/19 01:20 [bee venom (honey bee)] cajun spice Allergy Mild Swelling Uncoded 02/10/19 20:54 Home Meds: Home Meds Levothyroxine Sodium [Synthroid] 88 mcg PO ACBRK 08/18/13 [History] Losartan/Hydrochlorothiazide [Losartan-HCTZ 100-12.5 MG] 1 each PO DAILY [History] Pantoprazole Sodium 40 mg PO DAILY 06/01/14 [History] metFORMIN [Glucophage] 500 mg PO BIDMEALS 01/23/17 [History] atorvaSTATin [Lipitor] 10 mg PO BEDTIME 09/07/17 [History] Albuterol Sulfate [Albuterol Sulfate Hfa] 2 - 4 puff IH Q4H PRN #1 hfa.aer.ad [Rx] Codeine/guaiFENesin [guaiFENesin-Codeine Syrup] 5 - 10 ml PO Q4H PRN 06/29/19 [ History] predniSONE 20 mg PO DAILY 06/29/19 [History] Past Medical History Cardiovascular History: Reports: High Cholesterol, Hypertension. Denies: CAD Respiratory History: Reports: Other (See Below) Other Respiratory History: pneumonia Gastrointestinal History: Reports: Gastritis, GERD, Other (See Below) Other Gastrointestinal History: DIAPHRAGMATIC HERNIA Genitourinary History: Reports: Other (See Below) Other Genitourinary History: PROTEINURIA Psychiatric History: Reports: Anxiety, Depression Endocrine/Metabolic History: Reports: Diabetes, Type II, Hypothyroidism Hematologic History: Reports: Other (See Below) Other Hematologic History: HYPOPOTASSEMIA Immunologic History: Reports: None - Infectious Disease History Infectious Disease History: Reports: Chicken Pox, Measles, Mumps, Shingles - Past Surgical History HEENT Surgical History: Reports: Oral Surgery GI Surgical History: Reports: Colonoscopy, EGD Female Surgical History: Reports: Tubal Ligation Musculoskeletal Surgical History: Reports: Carpal Tunnel, Ganglion Cyst, ORIF ( Left tib-fib), Other (See Below) Other Musculoskeletal Surgeries/Procedures:: TRIGGER FINGER RELEASE Social & Family History - Tobacco Use Smoking Status *Q: Former Smoker Used Tobacco, but Quit: Yes Month/Year Tobacco Last Used: 2013 - Caffeine Use Caffeine Use: Reports: Coffee, Soda - Alcohol Use Alcohol Use History: Yes Alcohol Use Frequency: Daily (1-2 drinks a day) - Recreational Drug Use Recreational Drug Use: No - Living Situation & Occupation Living situation: Reports: (She is here with her .) Occupation: Employed (She works at [employer].) ED ROS GENERAL - Review of Systems Review Of Systems: See Below Constitutional: Reports: Fever (Subjective), Chills (Subjective) HEENT: Reports: Throat Pain, Other (Hoarse voice) Respiratory: Reports: Shortness of Breath, Cough Cardiovascular: Reports: Chest Pain Endocrine: Reports: No Symptoms GI/Abdominal: Reports: No Symptoms : Reports: Incontinence (With cough) Musculoskeletal: Reports: No Symptoms Skin: Reports: No Symptoms Neurological: Reports: No Symptoms Hematologic/Lymphatic: Reports: No Symptoms Immunologic: Reports: No Symptoms ED EXAM, GENERAL - Physical Exam Exam: See Below Exam Limited By: No Limitations General Appearance: Alert, WD/WN, Moderate Distress (With frequent hacking cough ) Eye Exam: Bilateral Eye: EOMI, Normal Inspection, PERRL Ears: Normal External Exam, Hearing Grossly Normal Ear Exam: Bilateral Ear: Auricle Normal Nose: No Blood, Nasal Swelling, Nasal Drainage Throat/Mouth: Normal Inspection, Normal Oropharynx, Normal Voice, No Airway Compromise Head: Atraumatic, Normocephalic Neck: Normal Inspection, Supple, Non-Tender, Full Range of Motion Respiratory/Chest: No Respiratory Distress, No Accessory Muscle Use, Chest Non- Tender, Wheezing (Bilaterally with decreased air movement) Cardiovascular: Normal Peripheral Pulses, Regular Rate, Rhythm, No Edema, No Murmur Peripheral Pulses: 2+: Radial (L), Radial (R) GI/Abdominal: Normal Bowel Sounds, Soft, Non-Tender, No Mass Back Exam: Normal Inspection, Full Range of Motion Extremities: Normal Inspection, Normal Range of Motion, Non-Tender, No Pedal Edema, Normal Capillary Refill Neurological: Alert, Oriented, CN II-XII Intact, Normal Cognition, No Motor/ Sensory Deficits Skin Exam: Warm, Dry, Intact, Normal Color, No Rash EKG INTERPRETATION EKG Date: 06/29/19 Time: 02:25 Rhythm: NSR Rate (Beats/Min): 89 Star: Normal P-Wave: Present QRS: Normal ST-T: Other (Nonspecific ST-T changes) QT: Prolonged Comparison: No Change (No change from EKG performed on 02/10/2019.) Course - Vital Signs Last Recorded V/S: Last Vital Signs Temp 36.4 C 06/29/19 01:05 Pulse 75 06/29/19 01:05 Resp 24 H 06/29/19 01:05 BP 160/87 H 06/29/19 01:05 Pulse Ox 98 06/29/19 01:05 - Orders/Labs/Meds Orders: Active Orders 24 hr Category Date Time Status EKG Documentation Completion [RC] ASDIRECTED Care 06/29/19 01:27 Active RT Aerosol Therapy [RC] ASDIRECTED Care 06/29/19 01:28 Active Chest 2V [CR] Stat Exams 06/29/19 01:26 Ordered EKG 12 Lead [EK] Routine Ther 06/29/19 01:26 Ordered Labs: Laboratory Tests 06/29/19 06/29/19 06/29/19 Range/Units 01:48 01:48 01:48 WBC 9.4 (4.5-12.0) X10-3/uL RBC 4.20 (3.23-5.20) x10(6)uL Hgb 12.6 (11.5-15.5) g/dL Hct 37.7 (30.0-51.3) % MCV 90.0 (80-96) fL MCH 30.1 (27.7-33.6) pg MCHC 33.5 (32.2-35.4) g/dL RDW 16.9 H (11.5-15.5) % Plt Count 370 H (125-369) X10(3)uL MPV 9.5 (7.4-10.4) fL Neut % (Auto) 79.8 (46-82) % Lymph % (Auto) 14.4 (13-37) % [place] % (Auto) 4.1 (4-12) % Eos % (Auto) 0 L (1.0-5.0) % Baso % (Auto) 1 (0-2) % Neut # (Auto) 7.5 (1.6-8.3) # Lymph # (Auto) 1.4 (0.6-5.0) # [place] # (Auto) 0.4 (0.0-1.3) # Eos # (Auto) 0.0 (0.0-0.8) # Baso # (Auto) 0.1 (0.0-0.2) # Sodium 141 (135-145) mmol/L Potassium 3.2 L (3.5-5.3) mmol/L Chloride 102 (100-110) mmol/L Carbon Dioxide 23 (21-32) mmol/L BUN 14 (7-18) mg/dL Creatinine 1.0 (0.55-1.02) mg/dL Est Cr Clr Drug Dosing 62.31 mL/min Estimated GFR (MDRD) 58 L (>60) BUN/Creatinine Ratio 14.0 (9-20) Glucose 231 H D (80-116) mg/dL Calcium 9.1 (8.6-10.2) mg/dL Total Bilirubin 0.3 (0.1-1.3) mg/dL AST 45 H D (5-25) IU/L ALT 78 H D (12-36) U/L Alkaline Phosphatase 80 (56-112) IU/L Troponin I < 0.017 L (<0.017-0.056) ng/mL C-Reactive Protein 0.7 (0.5-0.9) mg/dL NT-Pro-B Natriuret Pep 228 H (<=125) pg/mL Total Protein 7.9 (6.0-8.0) g/dL Albumin 3.6 (3.5-5.2) g/dL Globulin 4.3 g/dL Albumin/Globulin Ratio 0.8 Meds: Medications Discontinued Medications Generic Name Dose Route Start Last Admin Trade Name Freq PRN Reason Stop Dose Admin Albuterol 2.5 mg 06/29/19 01:27 06/29/19 01:33 Proventil Neb Soln NEB 06/29/19 01:28 2.5 mg ONETIME ONE Administration Albuterol/Ipratropium 3 ml 06/29/19 01:27 06/29/19 01:33 Duoneb 3.0-0.5 Mg/3 Ml NEB 06/29/19 01:28 3 ml ONETIME ONE Administration - Radiology Interpretation Free Text/Narrative:: Chest x-ray showed no acute disease. - Re-Assessments/Exams Free Text/Narrative Re-Assessment/Exam: 06/29/19 02:30: Patient did feel somewhat improved after the nebulizer treatment. Her air movement is improved but she still has a hacking cough. Her blood tests are reassuring. She did have elevation in her liver function tests that most probably is related to alcohol liver disease. There is no evidence of heart failure. Her chest x-ray showed no pneumonia. She remained with normal O2 saturations. I have prescribed her an albuterol inhaler and we have given her a spacer to use with that inhaler she should continue her prednisone and apparently she just started her doxycycline today and she should continue that as well. She she continue to drink plenty of fluids. Departure - Departure Time of Disposition: 02:35 Disposition: Home, Self-Care 01 Condition: Good (Stable) Clinical Impression: Bronchitis, Cough, Elevated liver function tests Asthma exacerbation Qualifiers: Asthma severity: moderate Asthma persistence: persistent Qualified Code(s): J45.41 - Moderate persistent asthma with (acute) exacerbation - Discharge Information Prescriptions: Albuterol Sulfate [Albuterol Sulfate Hfa] 2 - 4 puff IH Q4H PRN #1 hfa.aer.ad PRN Reason: Wheezing and cough Instructions: Shortness of Breath, Adult, [id number], Cough, Adult, Easy-to- Read, How to Use a Metered Dose Inhaler, Acute Bronchitis, Adult, [id number], Asthma, Adult, [id number] Referrals: Anna Mack NP [Primary Care Provider] - Forms: ED Department Discharge Additional Instructions: Your chest x-ray showed no evidence of pneumonia or heart failure. Your EKG was unchanged from January 2019. Your blood tests were normal except for elevated liver function tests that probably represent alcohol overuse. You seemed to improve after the albuterol. You should continue to take the prednisone. Take the doxycycline as prescribed. Medication as prescribed (albuterol inhaler). Use the spacer that we provided you with the albuterol inhaler to make an effect. Back to the emergency department for worse breathing, unrelenting vomiting, worsening or any other concerning sign or symptom. - My Orders Last 24 Hours: My Active Orders 06/29/19 01:26 Chest 2V [CR] Stat EKG 12 Lead [EK] Routine 06/29/19 01:27 EKG Documentation Completion [RC] ASDIRECTED 06/29/19 01:28 RT Aerosol Therapy [RC] ASDIRECTED - Assessment/Plan Last 24 Hours: My Active Orders 06/29/19 01:26 Chest 2V [CR] Stat EKG 12 Lead [EK] Routine 06/29/19 01:27 EKG Documentation Completion [RC] ASDIRECTED 06/29/19 01:28 RT Aerosol Therapy [RC] ASDIRECTED
[2019-06-29] MEDS ORDERED: Albuterol 0.083% 2.5 MG/3 ML Neb Soln NEB ONE (01:27)
[2019-06-29] MEDS ORDERED: Albuterol/Ipratropium 3.0-0.5 MG/3 ML Neb Soln NEB ONE (01:27)
[2019-06-29 02:57] VITALS: BP 124/59
--- NOTE | 2019-07-01 11:35 | CR ---
INDICATION: Cough, shortness of breath. CHEST: PA and lateral views of the chest, 06/29/19, were compared with and revealed the heart to appear slightly increased in size, compared with the previous study. No specific chamber enlargement was noted. Slightly prominent AP diameter with slightly flattened diaphragm leaves and mild hyperaeration raise question of COPD - correlate clinically. Pulmonary markings appear similar to the previous study without a definite active infiltrate or effusion. There is an appearance suggesting exogenous obesity. The aorta is somewhat tortuous. IMPRESSION: 1. Suggestion of mild ASHD. 2. Possible COPD - correlate clinically. 3. No definite acute process. MTDD
== END 2019-06-29 02:45 | disposition home or self-care (01) ==
LOC: FB.ED 01:00
DX: J45.41 Moderate persistent asthma with (acute) exacerbation (principal); R79.89 Other specified abnormal findings of blood chemistry; I10 Essential (primary) hypertension; E11.9 Type 2 diabetes mellitus without complications; E78.00 Pure hypercholesterolemia, unspecified; F41.9 Anxiety disorder, unspecified; F32.9 Major depressive disorder, single episode, unspecified; K21.9 Gastro-esophageal reflux disease without esophagitis; Z91.030 Bee allergy status; Z91.018 Allergy to other foods; Z87.891 Personal history of nicotine dependence; Z79.899 Other long term (current) drug therapy; Z98.51 Tubal ligation status
CPT/HCPCS: 36415; 71046; 80053; 83880; 84484; 85025; 86140; 93005; 94640; 99284-25; J7620-GY

== ENCOUNTER 2019-07-07 12:20 | Emergency (ER) | payer BC ==
[2019-07-07] MEDS ORDERED: diphenhydrAMINE 50 MG/ML SDV IM ONE (12:33)
--- NOTE | 2019-07-07 13:12 | EDM.PDOC ---
ED HPI GENERAL MEDICAL PROBLEM - General Chief Complaint: Allergic Reaction Stated Complaint: BEE STING Time Seen by Provider: 07/07/19 12:30 Source of Information: Reports: Patient, Family History Limitations: Reports: No Limitations - History of Present Illness INITIAL COMMENTS - FREE TEXT/NARRATIVE: Alis was stung by a wasp appearing insect on the ventral aspect of R distal forearm about 5 minutes ago while outside. She opened her autoinjector of epinephrine and injected herself in the thigh. She summoned her spouse who drove her to the ED. Upon arrival, she is reporting pain at site of insect bite and some throat sensation that is uncomfortable. She is not endorsing any SOB, stridor, or facial swelling. She was administered Benadryl 50 mg IM during interview, and will be observed for the next half hour. She is currently stable. Right Lower Arm Pain Score (Numeric/FACES): 7 - Related Data Allergies Allergy/AdvReac Type Severity Reaction Status Date / Time venom-honey bee Allergy Mild Swelling Verified 06/29/19 01:20 [bee venom (honey bee)] cajun spice Allergy Mild Swelling Uncoded 02/10/19 20:54 Home Meds: Home Meds Levothyroxine Sodium [Synthroid] 88 mcg PO ACBRK 08/18/13 [History] Losartan/Hydrochlorothiazide [Losartan-HCTZ 100-12.5 MG] 1 each PO DAILY [History] Pantoprazole Sodium 40 mg PO DAILY 06/01/14 [History] metFORMIN [Glucophage] 500 mg PO BIDMEALS 01/23/17 [History] atorvaSTATin [Lipitor] 10 mg PO BEDTIME 09/07/17 [History] Albuterol Sulfate [Albuterol Sulfate Hfa] 2 - 4 puff IH Q4H PRN #1 hfa.aer.ad [Rx] Codeine/guaiFENesin [guaiFENesin-Codeine Syrup] 5 - 10 ml PO Q4H PRN 06/29/19 [ History] predniSONE 20 mg PO DAILY 06/29/19 [History] Past Medical History Cardiovascular History: Reports: High Cholesterol, Hypertension. 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: Neurological History: Reports: None Psychiatric History: Reports: Anxiety, Depression Endocrine/Metabolic History: Reports: Diabetes, Type II, Hypothyroidism Hematologic History: Reports: Other (See Below) Other Hematologic History: HYPOPOTASSEMIA Immunologic History: Reports: None Oncologic (Cancer) History: Reports: None Dermatologic History: Reports: None - Infectious Disease History Infectious Disease History: Reports: Chicken Pox, Measles, Mumps, Shingles - Past Surgical History HEENT Surgical History: Reports: Oral Surgery GI Surgical History: Reports: Colonoscopy, EGD Female Surgical History: Reports: Tubal Ligation Musculoskeletal Surgical History: Reports: Carpal Tunnel, Ganglion Cyst, ORIF ( Left tib-fib), Other (See Below) Other Musculoskeletal Surgeries/Procedures:: TRIGGER FINGER RELEASE Social & Family History - Family History Family Medical History: Noncontributory - Caffeine Use Caffeine Use: Reports: Coffee, Soda - Living Situation & Occupation Living situation: Reports: (She is here with her .) Occupation: Employed (She works at [employer] ED ROS ALLERGIC REACTION - Review of Systems Review Of Systems: ROS reveals no pertinent complaints other than HPI. ED EXAM GENERAL NO PERIP PULSE - Physical Exam Exam: See Below Exam Limited By: No Limitations General Appearance: Alert, WD/WN, No Apparent Distress, Anxious Eye Exam: Bilateral Eye: EOMI, Normal Inspection, PERRL Ears: Normal External Exam Nose: Normal Inspection Throat/Mouth: Normal Inspection, Normal Lips, Normal Gums, Normal Oropharynx, Normal Voice, No Airway Compromise Head: Normocephalic Neck: Normal Inspection, Supple Respiratory/Chest: No Respiratory Distress, Lungs Clear, Normal Breath Sounds, No Accessory Muscle Use, Chest Non-Tender Cardiovascular: Regular Rate, Rhythm, No Murmur GI/Abdominal: Soft, Non-Tender Back Exam: Normal Inspection Extremities: Normal Inspection Neurological: Alert, Oriented, CN II-XII Intact, Normal Cognition, Normal Gait, No Motor/Sensory Deficits Psychiatric: Normal Affect, Anxious Skin Exam: Warm, Dry, Intact, Normal Color, No Rash, Other (insect bite site with mild erythema, no FB seen) Lymphatic: No Adenopathy Course - Vital Signs Text/Narrative:: Alis was observed in the ED for half hour, and reported no new sxs. Insect bite site was unchanged, and no sign of migration of erythema or swelling. Last Recorded V/S: Last Vital Signs Temp 36.6 C 07/07/19 12:20 Pulse 77 07/07/19 12:20 Resp 22 H 07/07/19 12:20 BP 159/106 H 07/07/19 12:20 Pulse Ox 100 07/07/19 12:20 - Orders/Labs/Meds Meds: Medications Discontinued Medications Generic Name Dose Route Start Last Admin Trade Name Chanel PRN Reason Stop Dose Admin Diphenhydramine HCl 50 mg 07/07/19 12:33 07/07/19 12:34 Benadryl IM 07/07/19 12:34 50 mg ONETIME ONE Administration Departure - Departure Time of Disposition: 13:15 Disposition: Home, Self-Care 01 Condition: Good Clinical Impression: Accidental wasp sting - Discharge Information *PRESCRIPTION DRUG MONITORING PROGRAM REVIEWED*: Not Applicable *COPY OF PRESCRIPTION DRUG MONITORING REPORT IN PATIENT HOMERO: Not Applicable Referrals: Anna Mack NP [Primary Care Provider] - - Problem List & Annotations (1) Accidental wasp sting SNOMED Code(s): 534131518 Code(s): T63.461A - TOXIC EFFECT OF VENOM OF WASPS, ACCIDENTAL, INIT Status : Acute Current Visit: Yes Annotation/Comment:: I suggested observation, and refill Bee Sting Kit. She may return to the ED anytime if sxs escalate. - Problem List Review Problem List Initiated/Reviewed/Updated: Yes - Assessment/Plan Plan: Follow up with PCP.
[2019-07-07 13:45] VITALS: BP 114/79; PULSE 70
== END 2019-07-07 13:17 | disposition home or self-care (01) ==
LOC: FB.ED 12:20
DX: T63.461A Toxic effect of venom of wasps, accidental (unintentional), initial encounter (principal); I10 Essential (primary) hypertension; E78.00 Pure hypercholesterolemia, unspecified; K21.9 Gastro-esophageal reflux disease without esophagitis; F41.9 Anxiety disorder, unspecified; F32.9 Major depressive disorder, single episode, unspecified; E03.9 Hypothyroidism, unspecified; E11.9 Type 2 diabetes mellitus without complications; Z91.030 Bee allergy status; Z91.018 Allergy to other foods; Z79.899 Other long term (current) drug therapy; Z79.84 Long term (current) use of oral hypoglycemic drugs
CPT/HCPCS: 96372; 99282; J1200

== ENCOUNTER 2019-07-09 11:29 | Emergency (ER) | payer OTHER, BC ==
[2019-07-09 11:44] VITALS: PULSE 93
[2019-07-09] MEDS ORDERED: Ketorolac 60 MG/2 ML SDV IM ONE (11:50)
[2019-07-09] MEDS ORDERED: Acetaminophen/oxyCODONE 325-5 MG Tab PO ONE (11:51)
[2019-07-09] MEDS ORDERED: Silver Sulfadiazine 1% Crm 400 GM Jar TOP ONE (12:03)
--- NOTE | 2019-07-09 12:10 | EDM.PDOC ---
ED HPI GENERAL MEDICAL PROBLEM - General Chief Complaint: Burn Time Seen by Provider: 07/09/19 11:35 Source of Information: Reports: Patient History Limitations: Reports: No Limitations - History of Present Illness INITIAL COMMENTS - FREE TEXT/NARRATIVE: Patient presents with concern for pollard which occurred when she was taking a fishman out of the oven at work today, spilled some water onto her clothing and apron and burned an area of her upper abdomen. Also some pain in her hands with which she grabbed the fishman. The area of her abdomen immediately blistered, her hands are not blistered, both are extremely painful. No other injury. Did not inhale steam. Upper Abdomen Pain Score (Numeric/FACES): 8 Bilateral Hand Pain Score (Numeric/FACES): 8 - Related Data Allergies Allergy/AdvReac Type Severity Reaction Status Date / Time venom-honey bee Allergy Mild Swelling Verified 07/09/19 11:31 [bee venom (honey bee)] cajun spice Allergy Mild Swelling Uncoded 07/09/19 11:31 Home Meds: Home Meds Levothyroxine Sodium [Synthroid] 88 mcg PO ACBRK 08/18/13 [History] Losartan/Hydrochlorothiazide [Losartan-HCTZ 100-12.5 MG] 1 each PO DAILY [History] Pantoprazole Sodium 40 mg PO DAILY 06/01/14 [History] metFORMIN [Glucophage] 500 mg PO BIDMEALS 01/23/17 [History] atorvaSTATin [Lipitor] 10 mg PO DAILY 09/07/17 [History] oxyCODONE 5 mg PO Q4HR PRN #12 tab 07/09/19 [Rx] Past Medical History Cardiovascular History: Reports: High Cholesterol, Hypertension Respiratory History: Reports: Other (See Below) Other Respiratory History: pneumonia Gastrointestinal History: Reports: Gastritis, GERD, Other (See Below) Other Gastrointestinal History: DIAPHRAGMATIC HERNIA Genitourinary History: Reports: Other (See Below) Other Genitourinary History: PROTEINURIA 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: Neurological History: Reports: None Psychiatric History: Reports: Anxiety, Depression Endocrine/Metabolic History: Reports: Diabetes, Type II, Hypothyroidism Hematologic History: Reports: Other (See Below) Other Hematologic History: HYPOPOTASSEMIA Immunologic History: Reports: None Oncologic (Cancer) History: Reports: None Dermatologic History: Reports: None - Infectious Disease History Infectious Disease History: Reports: Chicken Pox, Measles, Mumps, Shingles - Past Surgical History Head Surgeries/Procedures: Reports: None HEENT Surgical History: Reports: Oral Surgery GI Surgical History: Reports: Colonoscopy, EGD Female Surgical History: Reports: Tubal Ligation Musculoskeletal Surgical History: Reports: Carpal Tunnel, Ganglion Cyst, ORIF, Other (See Below) Other Musculoskeletal Surgeries/Procedures:: TRIGGER FINGER RELEASE Social & Family History - Family History Family Medical History: Noncontributory - Tobacco Use Smoking Status *Q: Former Smoker Used Tobacco, but Quit: Yes Month/Year Tobacco Last Used: 5 YEARS AGO - Caffeine Use Caffeine Use: Reports: Coffee Other Caffeine Use: 5 x's wk - Recreational Drug Use Recreational Drug Use: No - Living Situation & Occupation Living situation: Reports: (She is here with her .) Occupation: Employed (She works at [employer].) ED ROS GENERAL - Review of Systems Review Of Systems: ROS reveals no pertinent complaints other than HPI. ED EXAM, GENERAL - Physical Exam Exam: See Below Free Text/Narrative:: Gen.: Alert, tearful. Heart is slightly tachycardic, lungs clear throughout. Abdomen soft nontender. There is an area of blistered and burned skin across her upper abdomen approximately 31cm by 7cm Her hands are tender, but freely movable and only slightly red on the palmar side. There is no blistering present at this time She does not have any other injury Course - Vital Signs Text/Narrative:: Cool cloths to wounds. Silver Silvadene cream ordered, Toradol and oral Percocet. Second-degree on abdomen, probably first degree on hands based on appearance. Very minimal body surface area. No compromised airway or internal organs Last Recorded V/S: Last Vital Signs Temp 36.7 C 07/09/19 11:32 Pulse 93 07/09/19 11:32 Resp 20 07/09/19 11:32 BP 169/115 H 07/09/19 11:32 Pulse Ox 99 07/09/19 11:32 - Orders/Labs/Meds Meds: Medications Discontinued Medications Generic Name Dose Route Start Last Admin Trade Name Freq PRN Reason Stop Dose Admin Ketorolac Tromethamine 60 mg 07/09/19 11:50 07/09/19 11:53 Toradol IM 07/09/19 11:51 60 mg ONETIME ONE Administration Oxycodone/Acetaminophen 1 tab 07/09/19 11:51 07/09/19 11:54 Percocet 325-5 Mg PO 07/09/19 11:52 1 tab ONETIME ONE Administration Silver Sulfadiazine 0 gm 07/09/19 12:03 07/09/19 12:24 Silvadene 1% Cream 400 Gm TOP 07/09/19 12:04 1 applic ONETIME ONE Administration - Re-Assessments/Exams Free Text/Narrative Re-Assessment/Exam: 07/09/19 12:45 patient much improved after 60 of IM Toradol and 5 of Percocet. Wounds dressed. Has follow-up tomorrow at the clinic with her PCP. Will Rx opioid prescription for overnight, then PCP to take over. 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
[2019-07-09 13:09] VITALS: BP 153/79
== END 2019-07-09 13:08 | disposition home or self-care (01) ==
LOC: FB.ED 11:29
DX: T21.22XA Burn of second degree of abdominal wall, initial encounter (principal); T23.002A Burn of unspecified degree of left hand, unspecified site, initial encounter; T23.001A Burn of unspecified degree of right hand, unspecified site, initial encounter; I10 Essential (primary) hypertension; E11.9 Type 2 diabetes mellitus without complications; E78.00 Pure hypercholesterolemia, unspecified; F41.9 Anxiety disorder, unspecified; F32.9 Major depressive disorder, single episode, unspecified; E03.9 Hypothyroidism, unspecified; Z87.891 Personal history of nicotine dependence; Z91.030 Bee allergy status; Z91.018 Allergy to other foods; Z79.84 Long term (current) use of oral hypoglycemic drugs; Z79.899 Other long term (current) drug therapy; X19.XXXA Contact with other heat and hot substances, initial encounter; Y99.0 Civilian activity done for income or pay
CPT/HCPCS: 16020; 96372; 99283; A9270; J1885

== ENCOUNTER 2020-01-18 09:30 | Emergency (ER) | payer BC, OTHER ==
--- NOTE | 2020-01-18 10:38 | EDM.PDOC ---
ED HPI GENERAL MEDICAL PROBLEM - General Chief Complaint: Respiratory Problem Stated Complaint: SORE THROAT COUGH Time Seen by Provider: 01/18/20 09:30 Source of Information: Reports: Patient History Limitations: Reports: No Limitations - History of Present Illness INITIAL COMMENTS - FREE TEXT/NARRATIVE: states she has cough , fever body aches and joint pains for the past 2 day s cough is minimally productive of thick yellow phlegm, does not feel sob but is constantly coughing had pneumonia recently Onset: Sudden Duration: Day(s): (2) Location: Reports: Head, Chest Quality: Reports: Burning (in the anterior chest with coughing) Severity: Moderate Worsens with: Reports: Breathing Associated Symptoms: Reports: Cough, Headaches, Loss of Appetite, Weakness. 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: Reports: Other (see below) (did not take any medications this am ) chest Pain Score (Numeric/FACES): 4 - Related Data Allergies Allergy/AdvReac Type Severity Reaction Status Date / Time venom-honey bee Allergy Mild Swelling Verified 01/18/20 10:32 [bee venom (honey bee)] cajun spice Allergy Mild Swelling Uncoded 07/09/19 11:31 Home Meds: Home Meds Levothyroxine Sodium [Synthroid] 88 mcg PO ACBRK 08/18/13 [History] Losartan/Hydrochlorothiazide [Losartan-HCTZ 100-12.5 MG] 1 each PO DAILY [History] Pantoprazole Sodium 40 mg PO DAILY 06/01/14 [History] metFORMIN [Glucophage] 500 mg PO BIDMEALS 01/23/17 [History] atorvaSTATin [Lipitor] 10 mg PO DAILY 09/07/17 [History] oxyCODONE 5 mg PO Q4HR PRN #12 tab 07/09/19 [Rx] Azithromycin [Zithromax] 500 mg PO DAILY #3 tab 01/18/20 [Rx] Codeine/guaiFENesin [Robitussin AC] 10 ml PO TID PRN #240 cup 01/18/20 [Rx] Oseltamivir [Tamiflu] 75 mg PO BID #10 cap 01/18/20 [Rx] Past Medical History - Past Health History Medical/Surgical History: Denies Medical/Surgical History Cardiovascular History: Reports: High Cholesterol, Hypertension Respiratory History: Reports: Other (See Below) Other Respiratory History: pneumonia Gastrointestinal History: Reports: Gastritis, GERD, Other (See Below) Other Gastrointestinal History: DIAPHRAGMATIC HERNIA Genitourinary History: Reports: Other (See Below) Other Genitourinary History: 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: Neurological History: Reports: None Psychiatric History: Reports: Anxiety, Depression Endocrine/Metabolic History: Reports: Diabetes, Type II, Hypothyroidism Hematologic History: Reports: Other (See Below) Other Hematologic History: HYPOPOTASSEMIA Immunologic History: Reports: None Oncologic (Cancer) History: Reports: None Dermatologic History: Reports: None - Infectious Disease History Infectious Disease History: Reports: Chicken Pox, Measles, Mumps, Shingles - Past Surgical History Head Surgeries/Procedures: Reports: None HEENT Surgical History: Reports: Oral Surgery GI Surgical History: Reports: Colonoscopy, EGD Female Surgical History: Reports: Tubal Ligation Musculoskeletal Surgical History: Reports: Carpal Tunnel, Ganglion Cyst, ORIF, Other (See Below) Other Musculoskeletal Surgeries/Procedures:: TRIGGER FINGER RELEASE Social & Family History - Family History Family Medical History: Noncontributory - Caffeine Use Caffeine Use: Reports: Coffee Other Caffeine Use: 5 x's wk - Living Situation & Occupation Living situation: Reports: (She is here with her .) Occupation: Employed (She works at [employer].) ED ROS GENERAL - Review of Systems Review Of Systems: See Below Constitutional: Reports: Fever, Chills, Malaise, Weakness, Fatigue, Night Sweats , Decreased Appetite HEENT: Reports: Throat Pain (with cooughing) Respiratory: Reports: Cough, Sputum. Denies: Shortness of Breath Cardiovascular: Reports: No Symptoms Endocrine: Reports: Fatigue GI/Abdominal: Reports: No Symptoms Musculoskeletal: Reports: No Symptoms Skin: Reports: No Symptoms Neurological: Reports: No Symptoms Psychiatric: Reports: No Symptoms Hematologic/Lymphatic: Reports: No Symptoms Immunologic: Reports: No Symptoms ED EXAM, GENERAL - Physical Exam Exam: See Below Exam Limited By: No Limitations General Appearance: Alert, WD/WN, No Apparent Distress Eye Exam: Bilateral Eye: EOMI Ears: Normal External Exam Ear Exam: Bilateral Ear: TM Dull Nose: Nasal Drainage, Clear Rhinorrhea Throat/Mouth: Normal Inspection, Normal Oropharynx Head: Atraumatic, Normocephalic Neck: Supple, Non-Tender Respiratory/Chest: Lungs Clear, Normal Breath Sounds, Chest Non-Tender Cardiovascular: Regular Rate, Rhythm GI/Abdominal: Soft, Non-Tender Extremities: Normal Range of Motion Neurological: Alert, Oriented, CN II-XII Intact Psychiatric: Anxious Course - Vital Signs Last Recorded V/S: Last Vital Signs Temp 36.6 C 01/18/20 09:30 Pulse 96 01/18/20 09:30 Resp 18 01/18/20 09:30 BP 155/93 H 01/18/20 09:30 Pulse Ox 96 01/18/20 09:30 - Orders/Labs/Meds Orders: Active Orders 24 hr Category Date Time Status Isolation [COMM] Routine Oth 01/18/20 09:56 Ordered - Re-Assessments/Exams Free Text/Narrative Re-Assessment/Exam: 01/18/20 10:42 had swab taken , no need for cxray will FU with PCP ( call) as needed Departure - Departure Time of Disposition: 10:40 Disposition: Home, Self-Care 01 Condition: Good Clinical Impression: Bronchitis, Influenza A - Discharge Information *PRESCRIPTION DRUG MONITORING PROGRAM REVIEWED*: Not Applicable *COPY OF PRESCRIPTION DRUG MONITORING REPORT IN PATIENT HOMERO: Not Applicable Prescriptions: Azithromycin [Zithromax] 500 mg PO DAILY #3 tab Codeine/guaiFENesin [Robitussin AC] 10 ml PO TID PRN #240 cup PRN Reason: Cough Oseltamivir [Tamiflu] 75 mg PO BID #10 cap Instructions: Influenza, Adult, [id number], Cough, Adult, [id number], Acute Bronchitis, Adult, [id number] Referrals: Anna Mack INSTALLER HELPER [Primary Care Provider] - Forms: ED Department Discharge Additional Instructions: Monitor for any worsening of symptoms and call your doctors office for further evaluation Increase fluid intake Take tylenol or ibuprofen for fever and pains Sepsis Event Note - Evaluation Sepsis Screening Result: No Definite Risk - Focused Exam Vital Signs: Vital Signs Temp Pulse Resp BP Pulse Ox 01/18/20 09:30 36.6 C 96 18 155/93 H 96 Date Exam was Performed: 01/18/20 Time Exam was Performed: 11:18 - My Orders Last 24 Hours: My Active Orders 01/18/20 09:56 Isolation [COMM] Routine - Assessment/Plan Last 24 Hours: My Active Orders 01/18/20 09:56 Isolation [COMM] Routine
[2020-01-18 12:25] VITALS: PULSE 92
[2020-01-18 12:26] VITALS: BP 142/89
== END 2020-01-18 10:45 | disposition home or self-care (01) ==
LOC: FB.ED 09:30
DX: J10.1 Influenza due to other identified influenza virus with other respiratory manifestations (principal); E78.00 Pure hypercholesterolemia, unspecified; I10 Essential (primary) hypertension; K21.9 Gastro-esophageal reflux disease without esophagitis; E11.9 Type 2 diabetes mellitus without complications; E03.9 Hypothyroidism, unspecified; Z79.84 Long term (current) use of oral hypoglycemic drugs; Z91.030 Bee allergy status; Z91.013 Allergy to seafood; Z79.899 Other long term (current) drug therapy
CPT/HCPCS: 87804; 87804-59; 99283

== ENCOUNTER 2020-06-16 12:19 | Emergency (ER) | payer BC ==
--- NOTE | 2020-06-16 12:46 | EDM.PDOC ---
ED HPI GENERAL MEDICAL PROBLEM - General Stated Complaint: SOB, COVID TEST NOT BACK YET Time Seen by Provider: 06/16/20 12:25 Source of Information: Reports: Patient History Limitations: Reports: No Limitations - History of Present Illness INITIAL COMMENTS - FREE TEXT/NARRATIVE: Patient presented to the ED because of increasing cough and dyspnea. She was seen in the clinic 4 days ago and was diagnosed with COPD exacerbation. Covid-19 test was done and result is still pending. She is anxious and want to be checkjed again. Generalized Pain Score (Numeric/FACES): 2 - Related Data Allergies Allergy/AdvReac Type Severity Reaction Status Date / Time venom-honey bee Allergy Mild Swelling Verified 06/16/20 12:23 [bee venom (honey bee)] cajun spice Allergy Mild Swelling Uncoded 06/16/20 12:23 Home Meds: Home Meds Levothyroxine Sodium [Synthroid] 88 mcg PO ACBRK 08/18/13 [History] Losartan/Hydrochlorothiazide [Losartan-HCTZ 100-12.5 MG] 1 each PO DAILY 08/22/13 [History] Pantoprazole Sodium 40 mg PO DAILY 06/01/14 [History] metFORMIN [Glucophage] 500 mg PO BIDMEALS 01/23/17 [History] atorvaSTATin [Lipitor] 10 mg PO DAILY 09/07/17 [History] oxyCODONE 5 mg PO Q4HR PRN #12 tab 07/09/19 [Rx] Azithromycin [Zithromax] 500 mg PO DAILY #3 tab 01/18/20 [Rx] Codeine/guaiFENesin [Robitussin AC] 10 ml PO TID PRN #240 cup 01/18/20 [Rx] Oseltamivir [Tamiflu] 75 mg PO BID #10 cap 01/18/20 [Rx] Benzonatate [Tessalon Perle] 100 mg PO Q8H PRN #15 capsule 06/16/20 [Rx] hydrOXYzine pamoate [Vistaril] 50 mg PO Q8H PRN #30 cap 06/16/20 [Rx] Past Medical History - Past Health History Medical/Surgical History: Denies Medical/Surgical History Cardiovascular History: Reports: High Cholesterol, Hypertension Respiratory History: Reports: Other (See Below) Other Respiratory History: pneumonia Gastrointestinal History: Reports: Gastritis, GERD, Other (See Below) Other Gastrointestinal History: DIAPHRAGMATIC HERNIA Genitourinary History: Reports: Other (See Below) Other Genitourinary History: 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: Neurological History: Reports: None Psychiatric History: Reports: Anxiety, Depression Endocrine/Metabolic History: Reports: Diabetes, Type II, Hypothyroidism Hematologic History: Reports: Other (See Below) Other Hematologic History: HYPOPOTASSEMIA Immunologic History: Reports: None Oncologic (Cancer) History: Reports: None Dermatologic History: Reports: None - Infectious Disease History Infectious Disease History: Reports: Chicken Pox, Measles, Mumps, Shingles - Past Surgical History Head Surgeries/Procedures: Reports: None HEENT Surgical History: Reports: Oral Surgery GI Surgical History: Reports: Colonoscopy, EGD Female Surgical History: Reports: Tubal Ligation Musculoskeletal Surgical History: Reports: Carpal Tunnel, Ganglion Cyst, ORIF, Other (See Below) Other Musculoskeletal Surgeries/Procedures:: TRIGGER FINGER RELEASE Social & Family History - Family History Family Medical History: Noncontributory - Caffeine Use Caffeine Use: Reports: Coffee Other Caffeine Use: 5 x's wk - Living Situation & Occupation Living situation: Reports: (She is here with her .) Occupation: Employed (She works at [employer].) ED ROS GENERAL - Review of Systems Review Of Systems: See Below Constitutional: Denies: Fever HEENT: Reports: No Symptoms Respiratory: Reports: Shortness of Breath, Cough. Denies: Sputum Cardiovascular: Reports: No Symptoms Endocrine: Reports: No Symptoms GI/Abdominal: Reports: No Symptoms : Reports: No Symptoms Musculoskeletal: Reports: No Symptoms Skin: Reports: No Symptoms Neurological: Reports: No Symptoms Psychiatric: Reports: Anxiety ED EXAM, GENERAL - Physical Exam Exam: See Below Exam Limited By: No Limitations General Appearance: Alert, No Apparent Distress Eye Exam: Bilateral Eye: PERRL Ears: Normal External Exam, Normal Canal Nose: Normal Inspection, Normal Mucosa Throat/Mouth: Normal Inspection, Normal Lips, Normal Teeth Head: Atraumatic, Normocephalic Neck: Normal Inspection, Supple, Non-Tender, Full Range of Motion Respiratory/Chest: No Respiratory Distress, Lungs Clear, Normal Breath Sounds Cardiovascular: Normal Peripheral Pulses, Regular Rate, Rhythm, No Edema GI/Abdominal: Normal Bowel Sounds, Soft, Non-Tender, No Organomegaly Extremities: Normal Inspection, Normal Range of Motion, Non-Tender Neurological: Alert, Oriented, CN II-XII Intact, Normal Cognition Course - Vital Signs Text/Narrative:: Reassurance Last Recorded V/S: Last Vital Signs Temp 36.2 C 06/16/20 12:19 Pulse 99 06/16/20 12:19 Resp 18 06/16/20 12:19 BP 175/95 H 06/16/20 12:19 Pulse Ox 99 06/16/20 12:19 Departure - Departure Time of Disposition: 00:50 Disposition: Home, Self-Care 01 Condition: Good Clinical Impression: COPD exacerbation - Discharge Information Prescriptions: Benzonatate [Tessalon Perle] 100 mg PO Q8H PRN #15 capsule PRN Reason: Cough hydrOXYzine pamoate [Vistaril] 50 mg PO Q8H PRN #30 cap PRN Reason: Anxiety Instructions: Chronic Obstructive Pulmonary Disease Exacerbation, [id number] Referrals: Kassidy Alegria MUSIC INDUSTRY INTERN [Primary Care Provider] - Forms: ED Department Discharge Additional Instructions: Please read discharge instructions on COPD Follow up your Covid Test in 1-2 days Duoneb treatment every 6 hours for 3 days then as needed Increase prednisone to 4omg(or 2 tablets) daily for 5 days Continue your z-juan Tessalon Pearles, 1-2 tablets every 8 hours as needed for cough Robitussin AC 10 ml every 6 hours as needed for cough Vistaril/hydroxyzine 5 mg every 8 hours as needed for anxiety and sleep Follow up as needed Sepsis Event Note (ED) - Focused Exam Vital Signs: Vital Signs Temp Pulse Resp BP Pulse Ox 06/16/20 12:19 36.2 C 99 18 175/95 H 99
[2020-06-16 12:54] VITALS: BP 175/95; PULSE 99
== END 2020-06-16 13:13 | disposition home or self-care (01) ==
LOC: FB.ED 12:19
DX: J44.1 Chronic obstructive pulmonary disease with (acute) exacerbation (principal); I10 Essential (primary) hypertension; E78.00 Pure hypercholesterolemia, unspecified; K21.9 Gastro-esophageal reflux disease without esophagitis; E11.9 Type 2 diabetes mellitus without complications; E03.9 Hypothyroidism, unspecified; Z98.51 Tubal ligation status; Z91.030 Bee allergy status; Z91.018 Allergy to other foods; Z79.899 Other long term (current) drug therapy
CPT/HCPCS: 99284

== ENCOUNTER 2021-12-06 09:09 | Emergency (ER) | payer BC ==
[2021-12-06] MEDS ORDERED: Nitroglycerin 0.4 MG Tab.SL SL PRN (09:44)
[2021-12-06] MEDS ORDERED: Aspirin 81 MG Tab.Chew PO ONE (09:44)
[2021-12-06 10:34] VITALS: PULSE 77
[2021-12-06] MEDS ORDERED: Ketorolac 30 MG/ML SDV IVPUSH ONE (10:34)
[2021-12-06] MEDS ORDERED: Sodium Chloride 0.9% 10 ML Syringe FLUSH PRN (10:37)
[2021-12-06] MEDS ORDERED: amLODIPine 5 MG Tab PO ONE (10:46)
[2021-12-06] MEDS ORDERED: Potassium Chloride 20 MEQ Tab.ER PO ONE (10:46)
[2021-12-06 10:52] VITALS: BP 160/96
[2021-12-06] MEDS ORDERED: Acetaminophen 500 MG Tab PO ONE (12:15)
== END 2021-12-06 13:25 | disposition home or self-care (01) ==
LOC: FB.ED 09:09
DX: R07.89 Other chest pain (principal); I10 Essential (primary) hypertension; J44.9 Chronic obstructive pulmonary disease, unspecified; E78.00 Pure hypercholesterolemia, unspecified; K21.9 Gastro-esophageal reflux disease without esophagitis; E11.9 Type 2 diabetes mellitus without complications; E03.9 Hypothyroidism, unspecified; Z91.030 Bee allergy status; Z88.8 Allergy status to other drugs, medicaments and biological substances; Z79.899 Other long term (current) drug therapy; Z79.84 Long term (current) use of oral hypoglycemic drugs
CPT/HCPCS: 36415; 80048; 83735; 84484; 85027; 85379; 93005; 96374; 99285-25; A9270-GY; J1885

== ENCOUNTER 2023-04-13 11:43 | Emergency (ER) | payer BC ==
[2023-04-13] MEDS ORDERED: Magnesium Sulfate/Water 2 GM in Premix Bag 1 BAG IV ONE (11:45)
[2023-04-13] MEDS ORDERED: Potassium Chloride 20 MEQ Tab.ER PO ONE (11:46)
[2023-04-13] MEDS ORDERED: Sodium Chloride 0.9% 1,000 ML IV ONE (11:49)
[2023-04-13] MEDS ORDERED: Ondansetron 4 MG/2 ML SDV IVPUSH ONE (12:04)
[2023-04-13 12:07] LABS: BILIRUBIN DIRECT 0.35 mg/dL (0.10-0.20); BILIRUBIN TOTAL 1.3 mg/dL (0.1-1.3)
[2023-04-13 12:08] LABS: TROPONIN I 4.5 pg/mL (4.0-60.3)
[2023-04-13] MEDS ORDERED: Morphine 4 MG/ML VIAL IVPUSH ONE (12:15)
[2023-04-13 12:16] LABS: C-REACTIVE PROTEIN 3.5 mg/dL (0.5-0.9)
[2023-04-13] MEDS: Sodium Chloride 0.9% 10 ML Syringe FLUSH PRN ×2 (12:29→15:12)
[2023-04-13] MEDS ORDERED: Iopamidol 755 Mg/ML 100 ML Bottle IV ONE (12:52)
[2023-04-13 14:14] LABS: BILIRUBIN,URINE NEGATIVE (NEGATIVE); GLUCOSE,URINE NORMAL (NORMAL); KETONES,URINE NEGATIVE (NEGATIVE); LEUKOCYTE ESTERASE,URINE LARGE (NEGATIVE); NITRITE,URINE NEGATIVE (NEGATIVE); OCCULT BLOOD,URINE NEGATIVE (NEGATIVE); PROTEIN,URINE NEGATIVE (NEGATIVE); UROBILINOGEN,URINE NORMAL (NEGATIVE)
[2023-04-13 14:19] LABS: APPEARANCE,URINE SLIGHTLY CLOUDY (CLEAR); COLOR,URINE YELLOW (YELLOW)
[2023-04-13 14:20] LABS: BACTERIA,URINE MODERATE (NS); SQUAMOUS EPITHELIAL CELLS,UR FEW (NS,R,O); WBC,URINE 20-30 (0-5)
[2023-04-13] MEDS ORDERED: cefTRIAXone 1 GM Vial IVPUSH ONE (15:10)
[2023-04-13] MEDS ORDERED: Sodium Chloride 0.9% 1,000 ML IV SCH (15:30)
[2023-04-13 17:08] VITALS: BP 92/55; PULSE 62
[2023-04-18 10:12] LABS: ALKALINE PHOSPHATASE, S 177 IU/L (44-121); BONE FRACTION: 34 % (14-68); INTESTINAL FRAC.: 0 % (0-18); LIVER FRACTION: 66 % (18-85)
== END 2023-04-13 16:47 | disposition home or self-care (01) ==
LOC: FB.ED 11:43
DX: K76.0 Fatty (change of) liver, not elsewhere classified (principal); R16.0 Hepatomegaly, not elsewhere classified; F10.10 Alcohol abuse, uncomplicated; N39.0 Urinary tract infection, site not specified; E83.42 Hypomagnesemia; E87.6 Hypokalemia; E86.0 Dehydration; I95.9 Hypotension, unspecified; I45.81 Long QT syndrome; R79.82 Elevated C-reactive protein (CRP); Z91.030 Bee allergy status; Z91.018 Allergy to other foods; I10 Essential (primary) hypertension; E78.00 Pure hypercholesterolemia, unspecified; J44.9 Chronic obstructive pulmonary disease, unspecified; K21.9 Gastro-esophageal reflux disease without esophagitis; E11.9 Type 2 diabetes mellitus without complications; E03.9 Hypothyroidism, unspecified; E66.9 Obesity, unspecified; Z86.16 Personal history of COVID-19; Z79.84 Long term (current) use of oral hypoglycemic drugs; Z79.51 Long term (current) use of inhaled steroids; Z79.899 Other long term (current) drug therapy; Z68.31 Body mass index [BMI] 31.0-31.9, adult
CPT/HCPCS: 36415; 71046; 74177; 81001; 82247; 82248; 82272; 83690; 84075; 84080; 84484; 86140; 87086; 87088; 87186; 93005; 96361; 96365; 96375; 99284-25; A9270-GY; J0696; J2270; J2405; J3475; J3490; J7030; Q9967

== ENCOUNTER 2025-01-27 12:01 | Emergency (ER) | payer MEDICARE, BC ==
[2025-01-27 12:17] VITALS: BP 97/47; PULSE 51
[2025-01-27] MEDS: Sodium Chloride 0.9% 1,000 ML IV ONE (12:31)
[2025-01-27] MEDS: HYDROmorphone 2 MG/ML SDV IVPUSH ONE (12:31)
[2025-01-27] MEDS: cefTRIAXone 2 GM Vial IVPUSH ONE (12:31)
== END 2025-01-27 14:26 | disposition home or self-care (01) ==
LOC: FB.ED 12:01
DX: L03.116 Cellulitis of left lower limb (principal); I10 Essential (primary) hypertension; E11.9 Type 2 diabetes mellitus without complications; E03.9 Hypothyroidism, unspecified; E66.9 Obesity, unspecified; J44.9 Chronic obstructive pulmonary disease, unspecified; K21.9 Gastro-esophageal reflux disease without esophagitis; Z91.030 Bee allergy status; Z91.018 Allergy to other foods; Z79.899 Other long term (current) drug therapy; Z79.84 Long term (current) use of oral hypoglycemic drugs; Z79.890 Hormone replacement therapy; Z86.16 Personal history of COVID-19
CPT/HCPCS: 96361; 96374; 96375; 99283; 99283-25; J0696; J1171; J7030

== ENCOUNTER 2025-08-01 07:15 | Emergency (ER) | payer MEDICARE, OTHER ==
[2025-08-01 07:27] VITALS: BP 152/78
[2025-08-01] MEDS: Acetaminophen/oxyCODONE 325-5 MG Tab PO STA (08:14)
[2025-08-01 08:24] VITALS: PULSE 99
== END 2025-08-01 10:22 | disposition home or self-care (01) ==
LOC: FB.ED 07:15
DX: S09.90XA Unspecified injury of head, initial encounter (principal); S92.502A Displaced unspecified fracture of left lesser toe(s), initial encounter for closed fracture; S20.212A Contusion of left front wall of thorax, initial encounter; I10 Essential (primary) hypertension; E78.00 Pure hypercholesterolemia, unspecified; J44.9 Chronic obstructive pulmonary disease, unspecified; E11.9 Type 2 diabetes mellitus without complications; E03.9 Hypothyroidism, unspecified; E66.9 Obesity, unspecified; Z68.34 Body mass index [BMI] 34.0-34.9, adult; Z86.16 Personal history of COVID-19; Z91.030 Bee allergy status; Z91.018 Allergy to other foods; Z79.84 Long term (current) use of oral hypoglycemic drugs; Z79.890 Hormone replacement therapy; Z79.899 Other long term (current) drug therapy; W01.0XXA Fall on same level from slipping, tripping and stumbling without subsequent striking against object, initial encounter
CPT/HCPCS: 70450; 71101-LT; 71250; 73630-LT; 99284; A9270-GY